=== PATIENT | male | born 1975 | race Caucasian/White ===

== ENCOUNTER → 2017-04-23 | Outpatient (CLI) | payer MEDICARE ==
--- NOTE | 2017-04-23 13:50 | Diagnostic Imaging Report ---
INDICATION: Back pain. AP and lateral views of the lumbar spine are obtained. FINDINGS: The lumbar vertebrae are normal in height and alignment. There is no fracture or subluxation. There is small osteophyte formation at L5. There is no significant disc space narrowing. IMPRESSION: Minor degenerative changes as above with no acute bony abnormality. Dictated by: Dictated on workstation # [id number]
== END ==
LOC: RAD 12:17
PROVIDERS: ATTEND Chiropractor
DX: M54.5 Low back pain (principal); M54.15 Radiculopathy, thoracolumbar region; M79.1 Myalgia
CPT/HCPCS: 72100

== ENCOUNTER 2017-08-17 17:10 | Emergency (ER) | payer MEDICARE ==
[~2017-08-17] VITALS: Ht 175.3 cm; Wt 81.6 kg
[2017-08-17] MEDS ORDERED: LIDOCAINE 1% INJ 20 ML (XYLOCAINE) VIAL INJ STA (18:04)
[2017-08-17] MEDS ORDERED: TETANUS,DIPTH,PERTUSS P/F (BOOSTRIX) 0.5 ML VIAL IM STA (18:04)
--- NOTE | 2017-08-17 18:13 | ED General ---
General Chief Complaint: Laceration Stated Complaint: R HAND LAC Nursing Triage Note: LACERATION TO R HAND BETWEEN 1&2 WEB SPACE Nursing Sepsis Screen: No Definite Risk Source of Information: Patient, Family (mother) Exam Limitations: No Limitations History of Present Illness Time Seen by Provider: 18:02 Initial Comments 42 yo male patient presents to the ED with c/o a laceration to the rt hand from lifting his grill out of the truck. Timing/Duration: 1/2 Hour Modifying Factors: worse with Other (worse with palpation) Allergies and Home Medications Allergies Coded Allergies: Penicillins (Verified Allergy, Unknown, 08/17/17) Constitutional: no symptoms reported Musculoskeletal: see HPI, other (pain in the web space between the rt 1st and 2nd digits) Skin: see HPI Psychiatric/Neurological: Denies Numbness, Denies Paresthesia, Denies Tingling , Denies Weakness All Other Systems Reviewed Negative Unless Noted: Yes (Negative excepted noted.) Past Zzphton-Hmgsln-Fnstzz Hx Patient Social History Alcohol Use: Occasionally Uses Recreational Drug Use: No Smoking Status: Current Everyday Smoker Recent Foreign Travel: No Contact w/Someone Who Travel: No Recent Infectious Disease Expo: No Immunizations Up To Date Tetanus Booster (TDap): Unknown Surgeries History of Surgeries: No Respiratory History of Respiratory Disorde: No Cardiovascular History of Cardiac Disorders: No Neurological History of Neurological Disord: No Genitourinary History of Genitourinary Disor: No Gastrointestinal History of Gastrointestinal Di: No Musculoskeletal History of Musculoskeletal Dis: No Endocrine History of Endocrine Disorders: No HEENT History of HEENT Disorders: No Cancer History of Cancer: No Psychosocial History of Psychiatric Problem: No Integumentary History of Skin or Integumenta: No Reviewed Nursing Assessment Reviewed/Agree w Nursing PMH: Yes Family Medical History Significant Family History: No Pertinent Family Hx Physical Exam Vital Signs Vital Sign - Last 12Hours 08/17/17 08/17/17 17:12 19:40 Temp 96.3 Pulse 71 Resp 18 B/P (MAP) 139/65 Pulse Ox 96 O2 Delivery Room Air Capillary Refill : Less Than 3 Seconds General Appearance: No Apparent Distress, WD/WN Cardiovascular: Normal Peripheral Pulses Extremity: Normal Capillary Refill, Normal Range of Motion, Other (1 cm laceration noted in the web space between the 1st and 2nd fingers. no active bleeding noted. soft tissue tenderness noted. ) Neurologic/Psychiatric: Alert, Oriented x3, No Motor/Sensory Deficits, Normal Mood/Affect Skin: Normal Color, Warm/Dry, Tattoos/Piercings, Other (1 cm laceration noted in the web space between the 1st and 2nd fingers. no active bleeding noted. soft tissue tenderness noted. ) Laceration Repair : Wound Location: Upper Extremities (rt hand) Wound Length (cm): 1 Wound's Depth, Shape: superficial, linear Wound Explored: clean Betadine Prep?: Yes (and scrubbed with chlorasept and sterile saline) Anesthesia: 1% Lidocaine Volume Anesthetic (ccs): 2 Wound Debrided: minimal Suture: Ethlion Suture Size: 4-0 Number of Sutures: 3 Layer Closure?: 1 Sterile Dressing Applied?: Yes Progress Blood loss minimal. Patient tolerated the procedure well. Wound covered with 4 x 4 gauze and gauze roll. Progress/Results/Core Measures Results/Orders My Orders Orders - ERICA MONGEtFelix(Acell),Tet Adult (Boostrix (08/17/17 18:04) Lidocaine 1% Injection (Xylocaine 1% Inj (08/17/17 18:04) Ketorolac Injection (Toradol Injection) (08/17/17 18:14) Vital Signs/I&O Blood Pressure Mean: 89 Departure Communication (Admissions) Progress Notes Patient seen, evaluated, and wound repair performed. Plan for discharge to home. Impression Impression: Primary Impression: Laceration of right hand Qualified Codes: S61.411A - Laceration without foreign body of right hand, initial encounter Disposition: 01 HOME, SELF-CARE Condition: Improved Departure-Patient Inst. Decision time for Depature: 18:17 Referrals: NO,LOCAL PHYSICIAN (PCP/Family) Primary Care Physician Patient Instructions: Laceration Repair With Stitches (DC) Add. Discharge Instructions: All discharge instructions reviewed with patient and/or family. Voiced understanding. medications as directed. elevate the rt hand on pillows. tylenol extra strength as directed by the sales account manager for pain. motrin 800 mg by mouth every 8 hours as needed for pain. ice pack as needed. tomorrow morning you may begin showering with antibacterial soap. pat dry. apply triple antibiotic ointment twice daily for 3 days and cover with a bandage. return to the emergency department for worsened pain, redness, drainage, fever, or any other concerns. ERICA MONGE Aug 17, 2017 18:13
[2017-08-17] MEDS ORDERED: KETOROLAC 60 MG/2 ML VIAL IM STA (18:14)
[2017-08-17 19:40] VITALS: BP 142/99
== END 2017-08-17 19:40 | disposition home or self-care (01) ==
LOC: EDUNIT# 17:10 → ER 17:11
DX: S61.411A Laceration without foreign body of right hand, initial encounter (principal); F17.200 Nicotine dependence, unspecified, uncomplicated; Z23 Encounter for immunization; W45.8XXA Other foreign body or object entering through skin, initial encounter
CPT/HCPCS: 12001; 90471; 90715; 96372; 99281; 99282

== ENCOUNTER 2017-08-27 08:53 | Emergency (ER) | payer MEDICARE ==
[~2017-08-27] VITALS: Ht 175.3 cm; Wt 81.6 kg
--- OUTSIDE RECORDS SUMMARY | 2017-08-27 08:59 | XMS REPORT | Continuity of Care Document ---
Author Author [facility] Address Unknown Phone Unavailable Allergies Active Description Code Type Severity Reaction Onset Reported/Identified Relationship to Patient Clinical Status Yes Wasp Venom Drug Allergy N/A N/A 06/23/2014 Medications Problems Date Dx Coded Attending Type Code Diagnosis Diagnosed By 06/03/2014 LOBO CASAREZ APRN 682.2 CELLULITIS AND ABSCESS OF TRUNK 06/03/2014 LOBO CASAREZ APRN V12.04 PERSONAL HISTORY OF METHICILLIN RESISTANT STAPHYLOCOCCUS AUREUS 06/03/2014 LENA ASHTON APRN 682.2 CELLULITIS AND ABSCESS OF TRUNK 06/03/2014 LENA ASHTON APRN S V12.04 PERSONAL HISTORY OF METHICILLIN RESISTANT STAPHYLOCOCCUS AUREUS 06/23/2014 LENA ASHTON APRN S 530.81 GERD 06/23/2014 LENA ASHTON APRN S 995.0 OTHER ANAPHYLACTIC REACTION Procedures Code [place] [address] CULTURE MRSA Results Encounters ACCT No. Visit Date/Time Discharge Status Pt. Type Provider Facility Loc./Unit Complaint [id number] 06/23/2014 14:19:00 06/23/2014 23: 59:59 CLS Outpatient LENA ASHTON APRN [id number] 06/03/2014 13:23:00 06/03/2014 23: 59:59 CLS Outpatient LOBO CASAREZ APRN R
[2017-08-27 09:00] VITALS: BP 134/73
== END 2017-08-27 09:00 | disposition home or self-care (01) ==
LOC: EDUNIT# 08:53 → ER 08:55
DX: S61.411D Laceration without foreign body of right hand, subsequent encounter (principal); X58.XXXD Exposure to other specified factors, subsequent encounter

== ENCOUNTER → 2018-03-21 | Outpatient (CLI) | payer MEDICARE ==
--- NOTE | 2018-03-21 09:04 | Diagnostic Imaging Report ---
PROCEDURE: US Abdomen, limited. TECHNIQUE: Multiple realtime grayscale images were obtained over the abdomen in various projections. INDICATION: Palpable mass at the xiphoid process. Sonographic interrogation of the area of the xiphoid process was performed. No sonographic abnormality is identified. No solid or cystic mass is seen. IMPRESSION: No sonographic abnormality seen. If symptoms persist, CT of the chest could be performed for further evaluation. Dictated by: Dictated on workstation # [id number]
== END ==
LOC: RAD 06:49
PROVIDERS: ATTEND Nurse Practitioner Community Health
DX: R19.06 Epigastric swelling, mass or lump (principal)
CPT/HCPCS: 76705

== ENCOUNTER → 2018-04-11 | Outpatient (CLI) | payer MEDICARE ==
[~2018-04-11] MED LIST: CATHETER FLUSH 10 ML SYR IV PRN; IOHEXOL 350 MG/ML 100 ML (OMNIPAQUE 350) VIAL IV ONE; NS 250 ML (IVPB) BAG IV ONE
--- NOTE | 2018-04-11 13:40 | Diagnostic Imaging Report ---
PROCEDURE: CT chest with contrast only. TECHNIQUE: Multiple contiguous axial images were obtained through the chest after administration of intravenous contrast. INDICATION: Sternal pain and epigastric pain as well as difficulty breathing. No prior studies are available for comparison. FINDINGS: No axillary, hilar or mediastinal lymphadenopathy is detected. No pericardial or pleural fluid is identified. No pulmonary infiltrates, nodules or masses are seen. Bony structures are unremarkable. No osteolytic or blastic lesions are seen. No fractures are identified. Imaging through the upper abdomen does show a complex solid-appearing mass in the upper pole of the left kidney approximately 3.8 cm in size. IMPRESSION: 1. No acute feature in the chest is identified. No acute bony abnormality is seen. No thoracic lymphadenopathy or parenchymal abnormality is seen. 2. 3.8 cm solid appearing mass involving the upper pole of the left kidney. Features are concerning for a renal cell carcinoma. Urology consult is recommended. Dictated by: Dictated on workstation # [id number]
== END ==
LOC: RAD 12:41
PROVIDERS: ATTEND Nurse Practitioner Community Health
DX: N28.89 Other specified disorders of kidney and ureter (principal); R06.00 Dyspnea, unspecified; R07.89 Other chest pain
CPT/HCPCS: 71260

== ENCOUNTER → 2018-05-16 | Outpatient (CLI) | payer MEDICARE ==
[~2018-05-16] MED LIST changes: +RECEIVED CONTRAST (Hold Metformin) IV SCH
--- NOTE | 2018-05-29 14:19 | RADIOLOGY REPORT ---
NAME: BARTOLO GRACE [facility] REC#: [id number] PT STATUS: REG CLI : 1975 PHYSICIAN: JUAN PABLO VALENZUELA MD ADMIT DATE: 05/14/18/RAD CORRECTED Signed Date of Exam:05/16/18 CT ABDOMEN/PELVIS W WO PROCEDURE: CT abdomen and pelvis with and without contrast. TECHNIQUE: Precontrast acquisitions were acquired through the abdomen and pelvis. Multiple contiguous axial images were obtained through the abdomen and pelvis after the administration of intravenous contrast. INDICATION: Suspicion for left renal mass. FINDINGS: There is a heterogeneously enhancing solid left renal mass at its upper pole partially exophytic bulging anteriorly and in axial plane it measures maximal dimensions 4.2 x 4.0 cm and measures about 3.6 cm cephalocaudal. The appearance is most suggestive of renal cell carcinoma. No additional left renal mass is found. This did not extend into its pelvis or hilum. The renal veins and cava are patent bilaterally. The adrenals are negative bilaterally. There is no perinephric or periaortic retroperitoneal lymphadenopathy. The contralateral right kidney is unobstructed and normal. There is no suspicious lytic or sclerotic bone lesion. There is no basilar pulmonary nodule. There is a tiny hiatal hernia. A minute low-density nodule left hepatic lobe near the dome anteriorly is 3 mm too small to be definitively characterize but felt more likely cystic. No definite solid or enhancing liver mass. There is no biliary abnormality. The spleen is negative. There is no small or large bowel obstruction. There is no ascites. The appendix normal. There is no diverticulitis. Prostate, seminal vesicles and the urinary bladder appeared within normal limits. Ilioinguinal lymph node chains appeared normal. No abdominal wall defect hernia or fluid collection. IMPRESSION: 1. A solid heterogeneously enhancing left renal mass, renal cell carcinoma not excluded. 2. There were, however no findings at this study felt suggestive of CT evidence for regional or distant metastasis. Dictated by: Dictated on workstation # [id number] Dict: 05/16/18 0935 Trans: 05/16/18 1705 [id number] Interpreted by: ESTEPHANIE ABRAHAM Electronically signed by: ESTEPHANIE ABRAHAM 05/16/18 1705 [facility]
== END ==
LOC: RAD 08:41
PROVIDERS: ATTEND Urology
DX: N28.89 Other specified disorders of kidney and ureter (principal)
CPT/HCPCS: 74178

== ENCOUNTER 2018-09-05 20:54 | Outpatient (CLI) | payer MEDICARE ==
[~2018-09-05 20:54] MED LIST changes: +ATEN25TA PO; +ATOR40TA70 PO; -CATHETER FLUSH 10 ML SYR IV PRN; +HYDR-3062 PO; +HYOS-19 SL; -IOHEXOL 350 MG/ML 100 ML (OMNIPAQUE 350) VIAL IV ONE; -NS 250 ML (IVPB) BAG IV ONE; +PANT40TA3 PO; -RECEIVED CONTRAST (Hold Metformin) IV SCH; +SENN-140 PO
== END 2018-09-06 06:47 | disposition home or self-care (01) ==
LOC: RAD 20:54 → SLEEP 09-06 06:47
PROVIDERS: ATTEND Nurse Practitioner Community Health
DX: G47.33 Obstructive sleep apnea (adult) (pediatric) (principal)
CPT/HCPCS: 95811

== ENCOUNTER 2019-01-22 19:27 | Emergency (ER) | payer MEDICARE, MEDICAID ==
[~2019-01-22] VITALS: Ht 175.3 cm; Wt 105.7 kg
[~2019-01-22 19:27] MED LIST changes: -SENN-140 PO; +SENN-141 PO
[2019-01-22] MEDS ORDERED: BENZONATATE 100 MG (TESSALON) CAPSULE PO SCH ×2 (20:00→20:45)
[2019-01-22] MEDS ORDERED: ACETAMINOPHEN 500 MG TAB (TYLENOL) PO ONE (20:00)
[2019-01-22] MEDS ORDERED: IBUPROFEN 800 MG (MOTRIN) TAB PO ONE (20:00)
[2019-01-22] MEDS ORDERED: PROMETHAZINE/ CODEINE SYRUP 5 ML UDC PO ONE ×2 (20:00→20:45)
--- NOTE | 2019-01-22 20:16 | ED Cough/URI ---
General Chief Complaint: Cough/Cold/Flu Symptoms Stated Complaint: VOMITING,COUGH,HEADACHE,DIZZY Nursing Triage Note: Pt. advises that he has been coughing for approximately 1 week and started vomitting this morning. He advises that he has had a fever and a headache. Sepsis Screen: No Definite Risk Source: patient, family History of Present Illness Date Seen by Provider: Jan 22, 2019 Time Seen by Provider: 19:48 Initial Comments PT ARRIVES VIA POV FROM HOME--WITH MOM, DAD AND FEMALE S.O. WITH HIM. MOM DOES MOST OF TALKING FOR PT, WELL FEMALE S.O. PT C/O NON-PRODUCTIVE COUGH AND CONGESTION FOR 1 WEEK VOMITING SECONDARY TO COUGH TODAY C/O HEADACHE--WORSE WITH COUGHING C/O BODY ACHES PT UNAWARE OF FEVER--TEMP IS 100.2 ON ARRIVAL NO CHEST PAIN OR SHORTNESS OF BREATH HAS NOT TAKEN ANYTHING FOR SYMPTOMS AT ANY TIME HAS NOT SOUGHT CARE UNTIL TODAY NO HISTORY OF RESPIRATORY PROBLEMS BUT SMOKES 2 PPD Allergies and Home Medications Allergies Coded Allergies: Penicillins (Verified Allergy, Unknown, 08/17/17) Uncoded Allergies: BEES (Allergy, Unknown, 01/22/19) Home Medications Atenolol 25 Mg Tablet, 25 MG PO DAILY, (Reported) Pantoprazole Sodium 40 Mg Tablet.dr, 40 MG PO DAILY, (Reported) Past Xszxhfi-Hqofwn-Ncanve Hx Patient Social History Alcohol Use: Denies Use Recreational Drug Use: No Smoking Status: Current Everyday Smoker Recent Foreign Travel: No Contact w/Someone Who Travel: No Recent Infectious Disease Expo: No Recent Hopitalizations: Yes Immunizations Up To Date Tetanus Booster (TDap): Unknown Seasonal Allergies Seasonal Allergies: No Past Medical History Surgeries: Yes (CANCER REMOVED FROM LEFT KIDNEY) Nephrectomy Respiratory: Yes Sleep Apnea Cardiac: Yes High Cholesterol, Hypertension Neurological: No Sexually Transmitted Disease: No Genitourinary: Yes (KIDNEY CANCER) Gastrointestinal: Yes Gastroesophageal Reflux Musculoskeletal: No Endocrine: No HEENT: No Cancer: Yes Kidney Did You Recieve Any Treatments: Yes What Type of Treatment Did You: Surgical Intervention Psychosocial: No Integumentary: No Blood Disorders: No Family Medical History No Pertinent Family Hx Physical Exam Vital Signs - First Documented Capillary Refill : Less Than 3 Seconds Height: 5'9.00" Weight: 233lbs. oz. 105.627645zo; 21.09 BMI Method:Stated Procedures/Interventions Suture Size: 4-0 Progress/Results/Core Measures Suspected Sepsis Recent Fever Within 48 Hours: Yes Infection Criteria Present: Suspected New Infection New/Unexplained Altered Menta: No Sepsis Screen: No Definite Risk SIRS Temperature:100.2 Pulse: 83 Respiratory Rate: 14 Blood Pressure 125 /83 Mean: 97 Results/Orders Micro Results Microbiology 01/22/19 Influenza Types A,B Antigen (ELOY) - Final, Complete My Orders Orders - DEVON LEIGH DO Influenza A And B Antigens (01/22/19 19:48) Benzonatate Capsule (Tessalon Perles) (01/22/19 20:00) Promethazine/ Codeine Syrup (Phenergan W (01/22/19 20:00) Acetaminophen Tablet (Tylenol Tablet) (01/22/19 20:00) Ibuprofen Tablet (Motrin Tablet) (01/22/19 20:00) Rx-Doxycycline Tablet (Rx-Vibramycin Tab (01/22/19 20:36) Benzonatate Capsule (Tessalon Perles) (01/22/19 20:45) Promethazine/ Codeine Syrup (Phenergan W (01/22/19 20:45) Medications Given in ED Current Medications Medications Dose Ordered Sig/Laquita Route Start Time Stop Time Status Last Admin Dose Admin Acetaminophen 1,000 mg ONCE ONCE PO 01/22/19 20:00 01/22/19 20:01 DC 01/22/19 20:09 1,000 MG Ibuprofen 800 mg ONCE ONCE PO 01/22/19 20:00 01/22/19 20:01 DC 01/22/19 20:08 800 MG Promethazine HCl/ Codeine 5 ml ONCE ONCE PO 01/22/19 20:00 01/22/19 20:01 DC 01/22/19 20:08 5 ML Vital Signs/I&O 01/22/19 01/22/19 01/22/19 01/22/19 19:52 19:52 20:08 20:09 Temp 100.2 100.2 100.2 Pulse 83 Resp 14 B/P (MAP) 125/83 (97) Pulse Ox 95 O2 Delivery Room Air Room Air Capillary Refill : Less Than 3 Seconds Blood Pressure Mean: 97 Departure Impression Primary Impression: Influenza-like symptoms Additional Impressions: Bronchitis Upper respiratory infection Disposition: 01 HOME, SELF-CARE Condition: Stable Departure-Patient Inst. Referrals: [facility]/YEF[facility] (PCP) Primary Care Physician MONICA ROMANO (Family) Primary Care Physician Patient Instructions: Flu, Adult (DC), Acute Bronchitis, Adult (DC) Add. Discharge Instructions: LOTS OF CLEAR LIQUIDS--WATER, BROTH, JELLO, GATORADE TYLENOL 1 GRAM/ MOTRIN 800 MG 4 TIMES A DAY FOR PAIN OR FEVER FOLLOW UP WITH YOUR DR IN 3-4 DAYS IF NO BETTER All discharge instructions reviewed with patient and/or family. Voiced understanding. Scripts D-Methorphan Hb/Prometh HCl (Promethazine-Dm Syrup) 118 Ml Syrup 1-2 TSP PO Q4H for Cough, #120 ML Prov: DEVON LEIGH DO 01/22/19 Benzonatate (TESSALON PERLES) 100 Mg Capsule 1-2 TAB PO TID for Cough, #30 CAP Prov: DEVON LEIGH DO 01/22/19 Doxycycline Monohydrate (Doxycycline Monohydrate) 100 Mg Capsule 100 MG PO BID, #20 CAP Prov: DEVON LEIGH DO 01/22/19 DEVON LEIGH DO Jan 22, 2019 20:16
[2019-01-22] MEDS ORDERED: RX-DOXYCYCLINE 100 MG (VIBRAMYCIN) TAB PPK#2 PO STA (20:36)
[2019-01-22] MEDS ORDERED: DOXY100C42 PO (20:45)
[2019-01-22] MEDS ORDERED: D-ME118S7 PO (20:45)
[2019-01-22] MEDS ORDERED: BENZ100C18 PO (20:45)
[2019-01-22 21:28] VITALS: BP 125/83
== END 2019-01-22 21:28 | disposition home or self-care (01) ==
LOC: EDUNIT# 19:27 → ER 19:28
DX: J40 Bronchitis, not specified as acute or chronic (principal); J06.9 Acute upper respiratory infection, unspecified; R51 Headache; G47.30 Sleep apnea, unspecified; I10 Essential (primary) hypertension; E78.00 Pure hypercholesterolemia, unspecified; K21.9 Gastro-esophageal reflux disease without esophagitis; F17.210 Nicotine dependence, cigarettes, uncomplicated; Z88.0 Allergy status to penicillin; Z90.5 Acquired absence of kidney; Z85.528 Personal history of other malignant neoplasm of kidney
CPT/HCPCS: 87804

== ENCOUNTER 2019-05-26 16:15 | Emergency (ER) | payer MEDICARE, MEDICAID ==
[~2019-05-26] VITALS: Ht 177.8 cm; Wt 99.8 kg
[~2019-05-26 16:15] MED LIST changes: +BENZ100C18 PO; +D-ME118S7 PO; +DOXY100C42 PO
--- OUTSIDE RECORDS SUMMARY | 2019-05-26 16:20 | XMS REPORT ---
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 Active 574075022 ALLERGIES No Information ENCOUNTERS Encounter Location Date Diagnosis [facility] [address] [address] Aug, Observed sleep apnea G47.30 [facility] [address] [address] Aug, [facility] [address] [address] Aug, [facility] [address] [place] [id number] [place] [address] Jul, Low back pain M54.5 ; Other chronic pain G89.29 and Observed sleep apnea G47.30 [facility] [id number] [place] [address] Jul, Observed sleep apnea G47.30 [facility] [address] [address] Jun, [place] [address] [address] May, Strain of lumbar region, initial encounter S39.012A and Essential hypertension I10 [place] [id number] [place] [address] 13 May, 2018 [place] [address] [address] 03 May, 2018 [place] [id number] [place] [address] 13 Apr, 2018 Medicare annual wellness visit, initial Z00.00 [place] [address] [address] 13 Apr, 2018 [place] [id number] [place] [address] 12 Apr, 2018 Medicare annual wellness visit, initial Z00.00 ; Encounter for immunization Z23 ; GERD without esophagitis K21.9 ; Renal mass, right N28.89 and Advanced directives, counseling/discussion Z71.[address] [address] 07 Apr, 2018 [place] [id number] [place] [address] March, Sternum pain R07.89 and Epigastric mass R19.06 [place] [id number] [place] [address] 30 Feb, 2018 Acute suppurative otitis media of right ear without spontaneous rupture of tympanic membrane, recurrence not specified H66.001 ; 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 and Epigastric mass R19.06 [facility] [id number] [place] [address] Feb, Sore throat J02.9 and Acute intractable headache, unspecified headache type R51 [facility] [address] [place] [id number] [place] [address] Jan, Sternum pain R07.89 and GERD without esophagitis K21.9 [place] [address] [address] Feb, Skin tags, multiple acquired L91.8 [facility] [id number] [address] Feb, [facility] [address] [place] [address] Feb, [facility] [address] [place] [address] Jun, [facility] [address] [facility] [id number] [address] Jun, [facility] [address] [facility] [id number] [address] May, [facility] [id number] [address] May, [facility] [address] [place] [address] May, [facility] [id number] [place] [address] May, [facility] [id number] [place] [address] May, [facility] [id number] [place] [address] May, [facility] [id number] [address] May, [facility] [id number] [place] [address] May, [facility] [id number] [address] May, IMMUNIZATIONS No Known Immunizations SOCIAL HISTORY Never Assessed REASON FOR VISIT CPAP order correction PLAN OF CARE VITAL SIGNS MEDICATIONS Unknown Medications RESULTS No Results PROCEDURES No Known procedures INSTRUCTIONS MEDICATIONS ADMINISTERED No Known Medications MEDICAL (GENERAL) HISTORY Type Description Date Medical History Cancer left kidney Surgical History left hand surgery Surgical History total teeth extractions Surgical History Partial removal of left kidney due to cancer 07/01/2018 Hospitalization History [facility] x 1 night Cancer 07/01/18
--- OUTSIDE RECORDS SUMMARY | 2019-05-26 16:20 | XMS REPORT ---
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 247137333 Problem Essential hypertension I10 Active 56214823 Problem Observed sleep apnea G47.30 Active 03123472 ALLERGIES No Information ENCOUNTERS Encounter Location Date Diagnosis [place] [address] [address] March, [place] [address] [address] Feb, Hypertension, benign I10 ; Skin tag L91.8 ; Tinea corporis B35.4 and Right otitis media with effusion H65.91 [place] [address] [place] [id number] [place] [address] Oct, [place] [address] [address] Oct, [place] [address] [address] Oct, Lumbar neuritis M54.16 [place] [address] [address] Aug, Observed sleep apnea G47.30 [place] [address] [address] Aug, [place] [address] [address] Aug, [place] [address] [place] [id number] [place] [address] Jul, Low back pain M54.5 ; Other chronic pain G89.29 and Observed sleep apnea G47.30 [place] [address] [place] [id number] [place] [address] 07 Jul, 2018 Observed sleep apnea G47.30 [place] [address] [place] [id number] [place] [address] Jun, [place] [address] [place] [id number] [place] [address] May, Strain of lumbar region, initial encounter S39.012A and Essential hypertension I10 [place] [address] [place] [id number] [place] [address] May, [place] [address] [address] May, [place] [address] [place] [id number] [place] [address] Apr, Medicare annual wellness visit, initial Z00.00 [place] [address] [place] [id number] [place] [address] Apr, [place] [address] [place] [id number] [place] [address] 12 Apr, 2018 Medicare annual wellness visit, initial Z00.00 ; Encounter for immunization Z23 ; GERD without esophagitis K21.9 ; Renal mass, right N28.89 and Advanced directives, counseling/discussion Z71.89 [place] [address] [place] [id number] [place] [address] Apr, [place] [address] [place] [id number] [place] [address] March, Sternum pain R07.89 and Epigastric mass R19.06 [place] [id number] [place] [address] Feb, Acute suppurative otitis media of right ear without spontaneous rupture of tympanic membrane, recurrence not specified H66.001 ; 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 and Epigastric mass R19.06 [facility] [address] [place] [id number] [place] [address] Feb, Sore throat J02.9 and Acute intractable headache, unspecified headache type R51 [facility] [address] [place] [id number] [place] [address] Jan, Sternum pain R07.89 and GERD without esophagitis K21.9 [facility] [address] [address] Feb, Skin tags, multiple acquired L91.8 [facility] [address] [address] Feb, [facility] [address] [address] Feb, [facility] [address] [place] [id number] [place] [address] Jun, [facility] [address] [place] [id number] [place] [address] Jun, [facility] [address] [place] [id number] [place] [address] May, [facility] [address] [place] [id number] [place] [address] May, [facility] [address] [place] [id number] [place] [address] May, [facility] [address] [place] [id number] [place] [address] May, [facility] [address] [place] [id number] [place] [address] May, [facility] [address] [place] [address] May, [facility] [address] [facility] [id number] [address] May, [facility] [address] [facility] [id number] [address] May, [facility] [address] [facility] [id number] [place] [address] May, IMMUNIZATIONS No Known Immunizations SOCIAL HISTORY Never Assessed REASON FOR VISIT [place] [place] VITAL SIGNS MEDICATIONS Unknown Medications RESULTS No Results PROCEDURES No Known procedures INSTRUCTIONS MEDICATIONS ADMINISTERED No Known Medications MEDICAL (GENERAL) HISTORY Type Description Date Medical History Cancer left kidney Surgical History left hand surgery Surgical History total teeth extractions Surgical History Partial removal of left kidney due to cancer 07/01/2018 Surgical History back surgery 11/07/18 Hospitalization History [facility] x 1 night Cancer 07/01/18 Hospitalization History back surgery 11/07/18
--- OUTSIDE RECORDS SUMMARY | 2019-05-26 16:20 | XMS REPORT | Encounter Summary ---
Author Author [facility] Organization [facility] Address Unknown Phone Unavailable Care Team Providers Care Special Education Coordinator Name Role Phone Waldo Mccormack MD PCP Encounter Details Care Team Description Date Type Department Leonor Hubbard MD [address] [facility] [address] [place] [address] [phone] 01/21/2019 [facility] [address] [id number] Social History Date Tobacco Use Types Packs/Day Years Used Current Every Day Smoker Cigarettes 1 24 Smokeless Tobacco: Current User Drinks/Week oz/Week Comments Alcohol Use Yes Sex Assigned at Date Recorded Not on file Industry Job Start Date Occupation Not on file Not on file Not on file Travel End Travel History Travel Start No recent travel history available. documented as of this encounter Functional Status Date of Assessment Functional Status Response 07/02/2018 Does the patient have a hearing impairment: No documented as of this encounter Medications at Time of Discharge Start Date End Date Medication Sig Dispensed Refills atenolol (TENORMIN) 25 mg Take 25 mg by 0 tablet mouth daily. atorvastatin (LIPITOR) 40 Take 40 mg by 0 mg tablet mouth at bedtime daily. cyclobenzaprine Take 10 mg by 0 (FLEXERIL) 10 mg tablet mouth three times daily as needed for Muscle Cramps. EPINEPHrine (EPIPEN Inject 0.3 mg 0 2-ALTHEA) 1 mg/mL injection into the pen (2-Pack) muscle once as needed. Inject 0.3 mg (1 Pen) into thigh if needed for anaphylactic reaction. May repeat in 5-15 minutes if needed. 07/02/2018 hyoscyamine (ANASPAZ; Place one 30 tablet 0 NULEV; SYMAX FASTABS; tablet under HYOMAX-FT; ED-SPAZ; tongue every OSCIMIN) 0.125 mg rapid 4 hours as dissolve tablet needed. 07/02/2018 oxyCODONE (ROXICODONE, Take one 20 tablet 0 OXY-IR) 5 mg tablet tablet or two tablets by mouth every 6 hours as needed for severe pain pantoprazole DR Take 40 mg by 0 (PROTONIX) 40 mg tablet mouth daily. 07/02/2018 polyethylene glycol 3350 Take one 30 each 0 (MIRALAX) 17 g packet packet by mouth twice daily. senna (SENOKOT) 8.6 mg 0 tablet 07/02/2018 senna/docusate Take one 14 tablet 0 (SENOKOT-S) 8.6/50 mg tablet by tablet mouth twice daily. documented as of this encounter Plan of Treatment Not on filedocumented as of this encounter Procedures Comments Procedure Name Priority Date/Time Associated Diagnosis RENAL BLADDER LTD Routine 01/21/2019 Renal mass 12:52 PM MARINE SERVICE MANAGER documented in this encounter Results * US RENAL BLADDER LTD (01/21/2019 12:52 PM MARINE SERVICE MANAGER) Specimen Impressions Performed At Postoperative changes in the left kidney [facility] No evidence of recurrent or residual renal mass, hydronephrosis or shadowing calculi Finalized by Johnnie Bee M.D. on 01/21/2019 3:00 PM. Dictated by Johnnie Bee M.D. on 01/21/2019 2:58 PM. Narrative Performed At Renal sonogram [facility] Clinical indications: Renal mass. Left renal cancer following partial left nephrectomy. TECHNIQUE: Ultrasound images were performed over the kidneys and bladder. FINDINGS: Right kidney is normal in size with no evidence of hydronephrosis, shadowing calculi or definite masses. A minimally hypoechoic area in the upper to mid portion of the right kidney is is compatible with a column of Chon, a normal variant. There is mild cortical thinning in the area of previous mass in the lateral superior aspect of the left kidney. Left kidney appears otherwise normal with no evidence of hydronephrosis or shadowing calculi. The left kidney measures 10.4 x 5 point to centimeters. The bladder appears normal. Procedure Note Interface, Radiant Results - 01/21/2019 3:04 PM MARINE SERVICE MANAGER Renal sonogram Clinical indications: Renal mass. Left renal cancer following partial left nephrectomy. TECHNIQUE: Ultrasound images were performed over the kidneys and bladder. FINDINGS: Right kidney is normal in size with no evidence of hydronephrosis, shadowing calculi or definite masses. A minimally hypoechoic area in the upper to mid portion of the right kidney is is compatible with a column of Chon, a normal variant. There is mild cortical thinning in the area of previous mass in the lateral superior aspect of the left kidney. Left kidney appears otherwise normal with no evidence of hydronephrosis or shadowing calculi. The left kidney measures 10.4 x 5 point to centimeters. The bladder appears normal. IMPRESSION Postoperative changes in the left kidney No evidence of recurrent or residual renal mass, hydronephrosis or shadowing calculi Finalized by Johnnie Bee M.D. on 01/21/2019 3:00 PM. Dictated by Johnnie Bee M.D. on 01/21/2019 2:58 PM. Performing Organization Address City/State/Zipcode Phone Number [facility] documented in this encounter Visit Diagnoses Diagnosis Renal mass Unspecified disorder of kidney and ureter documented in this encounter
--- OUTSIDE RECORDS SUMMARY | 2019-05-26 16:20 | XMS REPORT | Clinical Summary ---
Author Author [facility] Organization [facility] Address Unknown Phone Unavailable Care Team Providers Care Radius Corner Machine Operator Name Role Phone Waldo Mccormack MD PCP Source Comments Some departments are not documenting in the electronic medical record. If you d o not see the information that you expected, contact Release of Information in [facility] Information Management department at [phone] for further assistan ce in locating additional records.[facility] Allergies Comments Active Allergy Reactions Severity Noted Date Penicillins SHORTNESS OF Medium BREATH Wasp Venom UNKNOWN Low 02/06/2018 Medications End Date Status Medication Sig Dispensed Refills Start Date Active atorvastatin (LIPITOR) 40 Take 40 mg by 0 mg tablet mouth at bedtime daily. Active atenolol (TENORMIN) 25 mg Take 25 mg by 0 tablet mouth daily. Active pantoprazole DR Take 40 mg by 0 (PROTONIX) 40 mg tablet mouth daily. Active cyclobenzaprine Take 10 mg by 0 (FLEXERIL) 10 mg tablet mouth three times daily as needed for Muscle Cramps. Active hyoscyamine (ANASPAZ; Place one 30 tablet 0 NULEV; SYMAX FASTABS; tablet under 8 HYOMAX-FT; ED-SPAZ; tongue every OSCIMIN) 0.125 mg rapid 4 hours as dissolve tablet needed. Active oxyCODONE (ROXICODONE, Take one 20 tablet 0 OXY-IR) 5 mg tablet tablet or two 8 tablets by mouth every 6 hours as needed for severe pain Active EPINEPHrine (EPIPEN Inject 0.3 mg 0 2-ALTHEA) 1 mg/mL injection into the pen (2-Pack) muscle once as needed. Inject 0.3 mg (1 Pen) into thigh if needed for anaphylactic reaction. May repeat in 5-15 minutes if needed. Active polyethylene glycol 3350 Take one 30 each 0 (MIRALAX) 17 g packet packet by 8 mouth twice daily. Active senna/docusate Take one 14 tablet 0 (SENOKOT-S) 8.6/50 mg tablet by 8 tablet mouth twice daily. Active senna (SENOKOT) 8.6 mg 0 tablet Active Problems Problem Noted Date Renal cell cancer, left 06/11/2018 Overview: S/p left robotic partial nephrectomy 07/01/18 Kidney, "left renal mass", partial nephrectomy: Clear cell renal cell carcinoma, WHO grade II. 01/2019: [facility] wnl L ast Assessment & Plan: Doing well CARLYLE RTC 18 months with CXR and CT AP and labs Family History Medical History Relation Name Comments Heart Disease Mother Hypertension Mother Relation Name Status Comments Mother Social History Date Tobacco Use Types Packs/Day Years Used Current Every Day Smoker Cigarettes 1 24 Smokeless Tobacco: Current User Tobacco Cessation: Ready to Quit: Yes Drinks/Week oz/Week Comments Alcohol Use Yes Sex Assigned at Date Recorded Not on file Industry Job Start Date Occupation Not on file Not on file Not on file Travel End Travel History Travel Start No recent travel history available. Last Filed Vital Signs Reading Time Taken Comments Vital Sign 125/70 01/21/2019 2:20 PM ENGINEHOUSE BRAKEMAN Blood Pressure 65 01/21/2019 2:20 PM ENGINEHOUSE BRAKEMAN Pulse 37.2 C (99 F) 07/02/2018 11:24 AM CDT Temperature - - Respiratory Rate 92% 07/02/2018 11:24 AM CDT Oxygen Saturation - - Inhaled Oxygen Concentration 105.9 kg (233 lb 6.4 oz) 01/21/2019 2:20 PM ENGINEHOUSE BRAKEMAN Weight 177.8 cm (5' 10") 01/21/2019 2:20 PM ENGINEHOUSE BRAKEMAN Height 33.49 01/21/2019 2:20 PM ENGINEHOUSE BRAKEMAN Body Mass Index Plan of Treatment Health Maintenance Due Date Last Done Comments PHYSICAL (COMPREHENSIVE) 1984 EXAM HIV SCREENING 1992 DTAP/TDAP VACCINES ( - 1995 Tdap) INFLUENZA VACCINE 08/19/2019 Results Not on filefrom Last 3 Months Insurance Type Payer Benefit Subscriber ID Effective Phone Address Plan / Dates Group Medicare MEDICARE MEDICARE xxxxxxxxxxx 2009- PART A AND Present B Medicaid [facility] MEDICAID [facility] xxxxxxxxxxx 2018-P [place]AN [place] Advance Directives Patient Water Resources Project Manager Explanation Type Date Recorded Advance 07/01/2018 5:14 AM Directive/DPOA Date Inactivated Comments Code Status Date Activated 07/02/2018 6:23 PM Full Code 07/01/2018 1:22 PM Provider has discussed Code Status Yes w/Patient or Family?
--- OUTSIDE RECORDS SUMMARY | 2019-05-26 16:20 | XMS REPORT | Encounter Summary ---
Author Author [facility] Organization [facility] Address Unknown Phone Unavailable Care Team Providers Care Credit Product Analyst Name Role Phone Waldo Mccormack MD PCP Reason for Referral * Consult, Test & Treat (Routine) Referred By Contact Referred To Contact Status Reason Specialty Diagnoses / Procedures Leonor Hubbard MD [address] [facility] [address] [place] [address] Cc - Ww Cl Exm/Proc [address] Closed Specialty Services Genetics / Diagnoses Required Oncology Renal cell cancer, left (HCC) * Radiology Services (Routine) Referred By Contact Referred To Contact Status Reason Specialty Diagnoses / Procedures Leonor Hubbard MD [address] [facility] [address] [place] [address] New Request Radiology Diagnoses Renal cell cancer, left (HCC) P rocedures CT ABD/PELV W CONTRAST Reason for Visit * Reason Comments Kidney Cancer Encounter Details Care Team Description Date Type Department Leonor Hubbard MD [address] [facility] [address] [place] [address] [phone] Renal cell cancer, left (HCC) (Primary Dx) 01/21/2019 Office Visit [facility] [address] [place] [id number] Social History Date Tobacco Use Types Packs/Day [...] history available. documented as of this encounter Last Filed Vital Signs Reading Time Taken Comments Vital Sign 125/70 01/21/2019 2:20 PM SPOT WELDER LINE Blood Pressure 65 01/21/2019 2:20 PM SPOT WELDER LINE Pulse - - Temperature - - Respiratory Rate - - Oxygen Saturation - - Inhaled Oxygen Concentration 105.9 kg (233 lb 6.4 oz) 01/21/2019 2:20 PM SPOT WELDER LINE Weight 177.8 cm (5' 10") 01/21/2019 2:20 PM SPOT WELDER LINE Height 33.49 01/21/2019 2:20 PM SPOT WELDER LINE Body Mass Index documented in this encounter Functional Status Date of Assessment Functional Status Response 07/02/2018 Does the patient have a hearing impairment: No documented as of this encounter Progress Notes * Leonor Hubbadr MD - 01/21/2019 3:15 PM SPOT WELDER LINE Date of Service: 01/21/2019 Subjective: Jaswinder Henderson Jr. is a 43 y.o. male. History of Present Illness Here for follow up of kidney cancer Doing well Denies complaints Denies pain, hematuria, dysuria Denies fatigue, wt loss Review of Systems Constitutional: Negative for activity change, appetite change, chills and fever. Respiratory: Negative for cough and shortness of breath. Cardiovascular: Negative for chest pain and leg swelling. Gastrointestinal: Negative for abdominal pain, constipation and diarrhea. Genitourinary: Negative for dysuria, enuresis, flank pain, frequency, hematuria, penile pain and testicular pain. Musculoskeletal: Negative for joint swelling. Skin: Negative for rash and wound. Neurological: Negative for syncope, weakness, light-headedness and headaches. Hematological: Negative for adenopathy. Psychiatric/Behavioral: Negative for confusion. Objective: atenolol (TENORMIN) 25 mg tablet Take 25 mg by mouth daily. atorvastatin (LIPITOR) 40 mg tablet Take 40 mg by mouth at bedtime daily. cyclobenzaprine (FLEXERIL) 10 mg tablet Take 10 mg by mouth three times bonita y as needed for Muscle Cramps. EPINEPHrine (EPIPEN 2-ALTHEA) 1 mg/mL injection pen (2-Pack) Inject 0.3 mg into the muscle once as needed. Inject 0.3 mg (1 Pen) into thigh if needed for anaph ylactic reaction. May repeat in 5-15 minutes if needed. hyoscyamine (ANASPAZ; NULEV; SYMAX FASTABS; HYOMAX-FT; ED-SPAZ; OSCIMIN) 0.1 25 mg rapid dissolve tablet Place one tablet under tongue every 4 hours as neede d. oxyCODONE (ROXICODONE, OXY-IR) 5 mg tablet Take one tablet or two tablets by mouth every 6 hours as needed for severe pain pantoprazole DR (PROTONIX) 40 mg tablet Take 40 mg by mouth daily. polyethylene glycol 3350 (MIRALAX) 17 g packet Take one packet by mouth twic e daily. senna (SENOKOT) 8.6 mg tablet senna/docusate (SENOKOT-S) 8.6/50 mg tablet Take one tablet by mouth twice d aily. Vitals: 01/21/19 1420 BP: 125/70 Pulse: 65 Weight: 105.9 kg (233 lb 6.4 oz) Height: 177.8 cm (70") Body mass index is 33.49 kg/m. Physical Exam Constitutional: He is oriented to person, place, and time. No distress. Eyes: Pupils are equal, round, and reactive to light. Neck: Neck supple. Cardiovascular: Normal rate and regular rhythm. Pulmonary/Chest: No respiratory distress. Abdominal: Soft. He exhibits no distension and no mass. There is no tenderness. Musculoskeletal: He exhibits no edema. Neurological: He is alert and oriented to person, place, and time. Skin: Skin is warm. No erythema. Assessment and Plan: Problem Renal Cell Cancer, Left (Hcc) S/p left robotic partial nephrectomy 07/01/18 Kidney, "left renal mass", partial nephrectomy: Clear cell renal cell carcinoma, WHO grade II. 01/2019: [facility] wnl Renal cell cancer, left (HCC) Doing well CARLYLE RTC 18 [address] with CXR and CT AP and labs Encouraged appointment with Genetic Counseling and replaced referral. Leonor Hubbard MD documented in this encounter Plan of Treatment Order Schedule Name Type Priority Associated Diagnoses Expected: 01/21/2020 (Approximate), Expires: 02/20/2020 CHEST 2 VIEWS Imaging Routine Renal cell cancer, left (HCC) Expected: 07/24/2019 (Approximate), Expires: 07/24/2022 CT ABD/PELV W CONTRAST Imaging Routine Renal cell cancer, left (HCC) Expected: 07/23/2020 (Approximate), Expires: 08/03/2022 CBC Lab Routine Renal cell cancer, left (HCC) Expected: 07/23/2020 (Approximate), Expires: 08/03/2022 COMPREHENSIVE METABOLIC Lab Routine Renal cell cancer, left PANEL (HCC) Expected: 02/04/2019 (Approximate), Expires: 01/22/2020 MISCELLANEOUS LAB TEST Lab Routine Renal cell cancer, left (HCC) Expected: 02/04/2019 (Approximate), Expires: 01/22/2020 GENETIC TEST Lab Routine Renal cell cancer, left (HCC) Order Schedule Name Type Priority Associated Diagnoses Ordered: 01/21/2019 AMB REFERRAL TO GENETIC Outpatient Routine Renal cell cancer, left COUNSELING Referral (HCC) documented as of this encounter Visit Diagnoses Diagnosis Renal cell cancer, left (HCC) - Primary * Assessment & Plan Note - Leonor Hubbard MD - 01/21/2019 2:56 PM SPOT WELDER LINE Associated Problem(s): Renal cell cancer, left (HCC) Doing well CARLYLE RTC [address] CXR and CT AP and labs W[place]DER [place] documented in this encounter
--- OUTSIDE RECORDS SUMMARY | 2019-05-26 16:21 | XMS REPORT ---
Author Author EVELIA SANDY Organization [facility] Address [address] [place] [address] Care Team Providers Care Freight Separator Name Role Phone EVELIA SANDY Unavailable PROBLEMS Type Condition ICD9-CM Code SXW70-KE Code Onset Dates Condition Status SNOMED Code Problem Personal history of methicillin resistant Staphylococcus aureus V12.04 Active 188155970 Problem Cellulitis and abscess of trunk 682.2 Active 099735823 Problem Other anaphylactic shock not elsewhere classified 995.0 Active 79661068 Problem Observed sleep apnea G47.30 Active 87083927 Problem Essential hypertension I10 Active 30131624 Problem GERD without esophagitis K21.9 Active 498472651 Problem Esophageal reflux 530.81 Active 570393357 Problem Renal mass, right N28.89 Active 117049070 Problem 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 [address] [place] [address] Jun, [facility] [address] [place] [address] May, Strain of lumbar region, initial encounter S39.012A and Essential hypertension I10 [facility] [address] [place] [id number] [address] May, [facility] [address] [place] [id number] [place] [address] May, [place] [address] [place] [id number] [place] [address] 13 Apr, 2018 Medicare annual wellness visit, initial Z00.00 [place] [address] [address] 13 Apr, 2018 [place] [address] [address] 12 Apr, 2018 Medicare annual wellness visit, initial Z00.00 ; Encounter for immunization Z23 ; GERD without esophagitis K21.9 ; Renal mass, right N28.89 and Advanced directives, counseling/discussion Z71.89 [place] [address] [address] 07 Apr, 2018 [place] [address] [address] March, Sternum pain R07.89 and Epigastric mass R19.06 [place] [address] [address] 30 Feb, 2018 Acute suppurative otitis media of right ear without spontaneous rupture of tympanic membrane, recurrence not specified H66.001 ; 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 [address] [address] Jun, [facility] [address] [address] Jun, [facility] [address] [address] May, [facility] [address] [address] May, [facility] [address] [address] May, [facility] [address] [address] May, [facility] [address] [address] May, [facility] [address] [address] May, [facility] [address] [address] May, [facility] [address] [address] May, [facility] [address] [place] [id number] [address] May, IMMUNIZATIONS No Known Immunizations SOCIAL HISTORY Never Assessed REASON FOR VISIT Pain (acute)(back), PT reports he fell off the back porch this weekend. -Brittany benavidez MA PLAN OF CARE Activity Details Follow Up prn Reason: VITAL SIGNS Height 70 in 2018-05-31 Weight 217.4 lbs 2018-05-31 Temperature 97.7 degrees Fahrenheit 2018-05-31 Heart Rate 81 bpm 2018-05-31 Respiratory Rate 20 2018-05-31 BMI 31.19 kg/m2 2018-05-31 Blood pressure systolic 155 mmHg 2018-05-31 Blood pressure diastolic 70 mmHg 2018-05-31 MEDICATIONS Medication Instructions Dosage Frequency Start Date End Date Duration Status Protonix 40 mg Orally Once a day 1 tablet 24h Jan, 30 day(s) Active EpiPen 2-Compa 0.3 MG/0.3ML Injection Once a day. may repeat daily as needed. as directed Feb, Active Cyclobenzaprine HCl 10 mg Orally Three times a day 1 tablet as needed 8h May, May, 10 days Active Atenolol 25 MG Orally Once a day 1 tablet 24h May, 30 day(s) Active Tramadol HCl 50 mg Orally every 6 hrs 1 tablet as needed 6h May, Active Omeprazole 20 MG Orally Once a day 1 capsule 24h Not-Taking Lipitor 40 mg Orally Once a day 1 tablet 24h May, 30 day(s) Active RESULTS No Results PROCEDURES Procedure Date Ordered Result Body Site [facility] VISIT ESTABLISHED PATIENT May 31, 2018 INSTRUCTIONS MEDICATIONS ADMINISTERED No Known Medications MEDICAL (GENERAL) HISTORY Type Description Date Medical History Cancer left kidney Surgical History left hand surgery Surgical History total teeth extractions Surgical History Partial removal of left kidney due to cancer 07/01/2018 Hospitalization History [facility] x 1 night Cancer 07/01/18
--- OUTSIDE RECORDS SUMMARY | 2019-05-26 16:21 | XMS REPORT ---
Author Author MONICA ROMANO Organization [facility] Address [address] [place] [address] Care Team Providers Care Particle Board Supervisor Name Role Phone MONICA ROMANO Unavailable PROBLEMS Type Condition ICD9-CM Code KBN89-YJ Code Onset Dates Condition Status SNOMED Code Problem Other anaphylactic shock not elsewhere classified 995.0 Active 58545906 Problem Personal history of methicillin resistant Staphylococcus aureus V12.04 Active 676519590 Problem Essential hypertension I10 Active 89830975 Problem Renal mass, right N28.89 Active 648000765 Problem Esophageal reflux 530.81 Active 122087735 Problem Cellulitis and abscess of trunk 682.2 Active 052197653 Problem 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 Active 177377023 Problem GERD without esophagitis K21.9 Active 499834054 ALLERGIES No Information ENCOUNTERS Encounter Location Date Diagnosis [place] [address] [address] Jul, [place] [address] [place] [address] Jun, [place] [address] [address] May, Strain of lumbar region, initial encounter S39.012A and Essential hypertension I10 [facility] [address] [facility] [id number] [address] May, [facility] [address] [place] [address] May, [facility] [address] [place] [address] Apr, Medicare annual wellness visit, initial Z00.00 [facility] [address] [place] [address] Apr, [place] [address] [address] Apr, Medicare annual wellness visit, initial Z00.00 ; Encounter for immunization Z23 ; GERD without esophagitis K21.9 ; Renal mass, right N28.89 and Advanced directives, counseling/discussion Z71.89 [place] [address] [address] Apr, [place] [address] [address] March, Sternum pain R07.89 and Epigastric mass R19.06 [place] [address] [address] 30 Feb, 2018 Acute suppurative otitis media of right ear without spontaneous rupture of tympanic membrane, recurrence not specified H66.001 ; 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 and Epigastric mass R19.06 [facility] [address] [address] Feb, Sore throat J02.9 and Acute intractable headache, unspecified headache type R51 [facility] [address] [address] Jan, Sternum pain R07.89 and GERD without esophagitis K21.9 [place] [address] [address] Feb, Skin tags, multiple acquired L91.8 [place] [address] [address] Feb, [place] [address] [address] Feb, [place] [address] [address] Jun, [place] [address] [address] Jun, [facility] [address] [place] [id number] [address] May, [facility] [address], [place] [address] May, [facility] [address], [place] [address] May, [facility] [address], [place] [address] May, [facility] [address], [place] [address] May, [facility] [address], [place] [address] May, [facility] [address], [place] [address] May, [facility] [address], [place] [address] May, [facility] [address] [place] [id number], [place] [address] May, IMMUNIZATIONS No Known Immunizations SOCIAL HISTORY Never Assessed REASON FOR VISIT Requests return call PLAN OF CARE VITAL SIGNS MEDICATIONS Unknown Medications RESULTS No Results PROCEDURES No Known procedures INSTRUCTIONS MEDICATIONS ADMINISTERED No Known Medications MEDICAL (GENERAL) HISTORY Type Description Date Surgical History left hand surgery Surgical History total teeth extractions
--- OUTSIDE RECORDS SUMMARY | 2019-05-26 16:21 | XMS REPORT ---
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 Active 490664149 Problem GERD without esophagitis K21.9 Active 621336145 Problem Essential hypertension I10 Active 00029150 Problem Renal mass, right N28.89 Active 724562175 ALLERGIES No Information ENCOUNTERS Encounter Location Date Diagnosis [place] [address] [address] Jul, Low back pain M54.5 ; Other chronic pain G89.29 and Observed sleep apnea G47.30 [place] [address] [address] Jul, Observed sleep apnea G47.30 [place] [address] [address] Jun, [place] [address] [address] May, Strain of lumbar region, initial encounter S39.012A and Essential hypertension I10 [place] [address] [address] May, [place] [address] [address] May, [place] [address] [address] Apr, Medicare annual wellness visit, initial Z00.00 [place] [address] [place] [id number] [place] [address] 13 Apr, 2018 [place] [address] [address] 12 Apr, 2018 Medicare annual wellness visit, initial Z00.00 ; Encounter for immunization Z23 ; GERD without esophagitis K21.9 ; Renal mass, right N28.89 and Advanced directives, counseling/discussion Z71.89 [place] [address] [address] 07 Apr, 2018 [place] [address] [address] March, Sternum pain R07.89 and Epigastric mass R19.06 [place] [address] [address] 30 Feb, 2018 Acute suppurative otitis media of right ear without spontaneous rupture of tympanic membrane, recurrence not specified H66.001 ; 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 and Epigastric mass R19.06 [facility] [address] [address] Feb, Sore throat J02.9 and Acute intractable headache, unspecified headache type R51 [facility] [address] [address] Jan, Sternum pain R07.89 and GERD without esophagitis K21.9 [place] [address] [place] [id number] [place] [address] Feb, Skin tags, multiple acquired L91.8 [place] [address] [address] 14 Feb, 2015 [place] [address] [address] 13 Feb, 2015 [place] [address] [address] Jun, [facility] [address] [facility] [id number], [place] [address] Jun, [facility] [address] [facility] [id number], [place] [address] May, [facility] [address] [facility] [id number], [place] [address] May, [facility] [address] [facility] [id number], [place] [address] May, [facility] [address] [facility] [id number], [place] [address] May, [facility] [address] [facility] [id number], [place] [address] May, [facility] [address], [place] [address] May, [facility] [address], [place] [address] May, [facility] [address] [place] [id number], [place] [address] May, [facility] [address] [place] [id number], [place] [address] May, IMMUNIZATIONS No Known Immunizations SOCIAL HISTORY Never Assessed REASON FOR VISIT sleep study request PLAN OF CARE VITAL SIGNS MEDICATIONS No Known Medications RESULTS No Results PROCEDURES No Known procedures INSTRUCTIONS MEDICATIONS ADMINISTERED No Known Medications MEDICAL (GENERAL) HISTORY Type Description Date Medical History Cancer left kidney Surgical History left hand surgery Surgical History total teeth extractions Surgical History Partial removal of left kidney due to cancer 07/01/2018 Hospitalization History [facility]U x 1 night Cancer 07/01/18
--- OUTSIDE RECORDS SUMMARY | 2019-05-26 16:21 | XMS REPORT ---
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 Active 264378057 Problem GERD without esophagitis K21.9 Active 884203962 Problem Essential hypertension I10 Active 67376667 Problem Renal mass, right N28.89 Active 831459117 ALLERGIES Substance Reaction Event Type Date Status Wasp Venom Unknown Drug Allergy Jul, Active ENCOUNTERS Encounter Location Date Diagnosis [place] [address] [address] Jul, Low back pain M54.5 ; Other chronic pain G89.29 and Observed sleep apnea G47.30 [place] [address] [address] Jul, Observed sleep apnea G47.30 [place] [address] [place] [id number] [place] [address] Jun, [place] [address] [address] May, Strain of lumbar region, initial encounter S39.012A and Essential hypertension I10 [place] [address] [address] May, [place] [address] [address] May, [place] [address] [address] 13 Apr, 2018 Medicare annual wellness visit, initial Z00.00 [place] [address] [address] 13 Apr, 2018 [place] [address] [address] 12 Apr, 2018 Medicare annual wellness visit, initial Z00.00 ; Encounter for immunization Z23 ; GERD without esophagitis K21.9 ; Renal mass, right N28.89 and Advanced directives, counseling/discussion Z71.89 [place] [address] [address] 07 Apr, 2018 [place] [address] [address] March, Sternum pain R07.89 and Epigastric mass R19.06 [place] [address] [address] Feb, Acute suppurative otitis media of right ear without spontaneous rupture of tympanic membrane, recurrence not specified H66.001 ; 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 and Epigastric mass R19.06 [facility] [address] [address] Feb, Sore throat J02.9 and Acute intractable headache, unspecified headache type R51 [facility] [address] [address] Jan, Sternum pain R07.89 and GERD without esophagitis K21.9 [place] [address] [address] Feb, Skin tags, multiple acquired L91.8 [place] [address] [address] 14 Feb, 2015 [place] [address] [address] Feb, [place] [address] [place] [address] Jun, [facility] [address] [place] [id number] [address] Jun, [facility] [address] [address] May, [facility] [address] [address] May, [facility] [address] [address] May, [facility] [address] [address] May, [facility] [address] [address] May, [facility] [address] [address] May, [facility] [address] [address] May, [facility] [address] [address] May, [facility] [address] [place] [id number] [address] May, IMMUNIZATIONS No Known Immunizations SOCIAL HISTORY Never Assessed REASON FOR VISIT Sleep study f/u [facility] PLAN OF CARE Activity Details Future/Pending Procedure SLEEP STUDY ([facility]) VITAL SIGNS Height 70 in 2018-08-09 Weight 219.0 lbs 2018-08-09 Temperature 98.5 degrees Fahrenheit 2018-08-09 Heart Rate 76 bpm 2018-08-09 Respiratory Rate 20 2018-08-09 Oximetry 98 % 2018-08-09 BMI 31.42 kg/m2 2018-08-09 Blood pressure systolic 132 mmHg 2018-08-09 Blood pressure diastolic 80 mmHg 2018-08-09 MEDICATIONS Medication Instructions Dosage Frequency Start Date End Date Duration Status Atenolol 25 MG Orally Once a day 1 tablet 24h 30 Active Neurontin 300 MG Orally Three times a day 1 capsule 8h Jul, 30 day(s) Active Protonix 40 mg Orally Once a day 1 tablet 24h 30 Active EpiPen 2-Compa 0.3 MG/0.3ML Injection Once a day. may repeat daily as needed. as directed Feb, Active Lipitor 40 mg Orally Once a day 1 tablet 24h May, 30 day(s) Active Cyclobenzaprine HCl 10 mg Orally 2 times a day 1 tablet as needed 12h Jul, Active RESULTS No Results PROCEDURES Procedure Date Ordered Result Body Site [facility] VISIT ESTABLISHED PATIENT Aug 09, 2018 INSTRUCTIONS MEDICATIONS ADMINISTERED No Known Medications MEDICAL (GENERAL) HISTORY Type Description Date Medical History Cancer left kidney Surgical History left hand surgery Surgical History total teeth extractions Surgical History Partial removal of left kidney due to cancer 07/01/2018 Hospitalization History KU x 1 night Cancer 07/01/18
--- OUTSIDE RECORDS SUMMARY | 2019-05-26 16:21 | XMS REPORT ---
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 Active 750751761 ALLERGIES No Information ENCOUNTERS Encounter Location Date Diagnosis [place] [address] [address] Aug, [place] [address] [address] Aug, [place] [address] [address] Jul, Low back pain M54.5 ; Other chronic pain G89.29 and Observed sleep apnea G47.30 [place] [address] [address] Jul, Observed sleep apnea G47.30 [place] [address] [place] [id number] [place] [address] Jun, [place] [address] [address] May, Strain of lumbar region, initial encounter S39.012A and Essential hypertension I10 [place] [address] [address] May, [place] [address] [place] [id number] [place] [address] May, [place] [address] [address] Apr, Medicare annual wellness visit, initial Z00.00 [place] [address] [place] [id number] [place] [address] 13 Apr, 2018 [place] [address] [address] 12 Apr, 2018 Medicare annual wellness visit, initial Z00.00 ; Encounter for immunization Z23 ; GERD without esophagitis K21.9 ; Renal mass, right N28.89 and Advanced directives, counseling/discussion Z71.89 [place] [address] [address] 07 Apr, 2018 [place] [address] [address] March, Sternum pain R07.89 and Epigastric mass R19.06 [place] [address] [address] 30 Feb, 2018 Acute suppurative otitis media of right ear without spontaneous rupture of tympanic membrane, recurrence not specified H66.001 ; 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 and Epigastric mass R19.06 [facility] [address] [place] [id number] [place] [address] Feb, Sore throat J02.9 and Acute intractable headache, unspecified headache type R51 [facility] [address] [place] [id number] [place] [address] Jan, Sternum pain R07.89 and GERD without esophagitis K21.9 [place] [address] [address] Feb, Skin tags, multiple acquired L91.8 [place] [address] [address] Feb, [facility] [address] [facility] [id number], [place] [address] Feb, [facility] [address] [facility] [id number], [place] [address] Jun, [facility] [address] [facility] [id number], [place] [address] Jun, [facility] [address] [facility] [id number], [place] [address] May, [facility] [address] [facility] [id number], [place] [address] May, [facility] [address] [facility] [id number], [place] [address] May, [facility] [address] [facility] [id number], [place] [address] May, [facility] [address], [place] [address] May, [facility] [address] [facility] [id number], [place] [address] May, [facility] [address] [id number], [place] [address] May, [facility] [address] [id number], [place] [address] May, [facility] [address] [id number], [place] [address] May, IMMUNIZATIONS No Known Immunizations SOCIAL HISTORY Never Assessed REASON FOR VISIT lab/ PLAN OF CARE VITAL SIGNS MEDICATIONS Unknown [...]
--- OUTSIDE RECORDS SUMMARY | 2019-05-26 16:21 | XMS REPORT ---
Author Author ROLANDO CLARK Organization [facility] Address [address] 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 [address] [place] [address] Jun, [facility] [address] [place] [address] May, Strain of lumbar region, initial encounter S39.012A and Essential hypertension I10 [facility] [address] [place] [id number] [address] May, [facility] [address] [place] [address] May, [facility] [address] [place] [address] Apr, Medicare annual wellness visit, initial Z00.00 [place] [address] [place] [address] 13 Apr, 2018 [place] [address] [address] 12 Apr, 2018 Medicare annual wellness visit, initial Z00.00 ; Encounter for immunization Z23 ; GERD without esophagitis K21.9 ; Renal mass, right N28.89 and Advanced directives, counseling/discussion Z71.89 [place] [address] [address] 07 Apr, 2018 [place] [address] [address] March, Sternum pain R07.89 and Epigastric mass R19.06 [place] [address] [address] 30 Feb, 2018 Acute suppurative otitis media of right ear without spontaneous rupture of tympanic membrane, recurrence not specified H66.001 ; 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 and Epigastric mass R19.06 [facility] [address] [address] Feb, Sore throat J02.9 and Acute intractable headache, unspecified headache type R51 [facility] [address] [address] Jan, Sternum pain R07.89 and GERD without esophagitis K21.9 [place] [address] [address] Feb, Skin tags, multiple acquired L91.8 [place] [address] [address] Feb, [place] [address] [address] Feb, [place] [address] [address] Jun, [place] [address] [address] Jun, [facility] [address] [facility] [id number] [address] May, [facility] [address] [facility] [id number] [address] May, [facility] [address] [facility] [id number] [address] May, [facility] [address] [facility] [id number] [address] May, [facility] [address] [facility] [id number] [address] May, [facility] [address] [place] [address] [id number] [address] May, [facility] [address] [address] May, [facility] [address] [address] May, [facility] [address] [place] [id number] [address] May, IMMUNIZATIONS No Known Immunizations SOCIAL HISTORY Never Assessed REASON FOR VISIT Start Lipitor PLAN OF CARE VITAL SIGNS MEDICATIONS Medication Instructions Dosage Frequency Start Date End Date Duration Status Lipitor 40 mg Orally Once a day 1 tablet 24h May, 30 day(s) Active RESULTS No Results PROCEDURES No Known procedures INSTRUCTIONS MEDICATIONS ADMINISTERED No Known Medications MEDICAL (GENERAL) HISTORY Type Description Date Surgical History left hand surgery Surgical History total teeth extractions
--- OUTSIDE RECORDS SUMMARY | 2019-05-26 16:21 | XMS REPORT ---
Author Author ROLANDO CLARK Organization [facility] Address [address] 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 Active 511798906 Problem GERD without esophagitis K21.9 Active 248287225 ALLERGIES Substance Reaction Event Type Date Status Wasp Venom Unknown Drug Allergy Apr, Active ENCOUNTERS Encounter Location Date Diagnosis [place] [id number] [place] [address] Jul, [facility] [address] [place] [address] Jun, [facility] [address] [place] [address] May, Strain of lumbar region, initial encounter S39.012A and Essential hypertension I10 [facility] [address] [place] [id number] [address] May, [facility] [address] [place] [address] May, [facility] [address] [place] [address] Apr, Medicare annual wellness visit, initial Z00.00 [facility] [address] [address] 13 Apr, 2018 [place] [address] [address] 12 Apr, 2018 Encounter for immunization Z23 ; Medicare annual wellness visit, initial Z00.00 ; GERD without esophagitis K21.9 ; Renal mass, right N28.89 and Advanced directives, counseling/discussion Z71.89 [place] [address] [address] 07 Apr, 2018 [place] [address] [address] March, Sternum pain R07.89 and Epigastric mass R19.06 [place] [address] [address] Feb, Acute suppurative otitis media of right ear without spontaneous rupture of tympanic membrane, recurrence not specified H66.001 ; 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 and Epigastric mass R19.06 [facility] [address] [address] Feb, Sore throat J02.9 and Acute intractable headache, unspecified headache type R51 [facility] [address] [place] [id number] [place] [address] Jan, Sternum pain R07.89 and GERD without esophagitis K21.9 [place] [address] [address] Feb, Skin tags, multiple acquired L91.8 [place] [address] [address] Feb, [place] [address] [address] Feb, [place] [address] [address] Jun, [place] [address] [place] [id number] [address] Jun, [facility] [address] [place] [id number] [address] May, [facility] [address] [address] May, [facility] [address] [address] May, [facility] [address] [address] May, [facility] [address] [address] May, [facility] [address] [address] May, [facility] [address] [address] May, [facility] [address] [address] May, [facility] [address] [place] [id number] [address] May, IMMUNIZATIONS Vaccine Route Administration Date Status TDAP (BOOSTRIX) IM Intramuscular April 30, 2018 Administered PPSV23 (PNEUMOVAX) IM Intramuscular April 30, 2018 Administered SOCIAL HISTORY Never Assessed REASON FOR VISIT Medicare AWV - Initial Visit -[facility] PLAN OF CARE Activity Details Follow Up 1 Year Reason: VITAL SIGNS Height 70 in 2018-04-30 Weight 214.8 lbs 2018-04-30 Temperature 98.2 degrees Fahrenheit 2018-04-30 Heart Rate 72 bpm 2018-04-30 Respiratory Rate 20 2018-04-30 BMI 30.82 kg/m2 2018-04-30 Blood pressure systolic 130 mmHg 2018-04-30 Blood pressure diastolic 80 mmHg 2018-04-30 MEDICATIONS Medication Instructions Dosage Frequency Start Date End Date Duration Status Omeprazole 20 MG Orally Once a day 1 capsule 24h Not-Taking EpiPen 2-Compa 0.3 MG/0.3ML Injection Once a day. may repeat daily as needed. as directed Feb, Active Protonix 40 mg Orally Once a day 1 tablet 24h Jan, 30 day(s) Active RESULTS No Results PROCEDURES Procedure Date Ordered Result Body Site IMMUNIZATION ADMIN, EACH ADD (please include units) April 30, 2018 [facility] VISIT IPPE/AWV April 30, 2018 ANNUAL WELLNES VST; PERSNL PPS INIT April 30, 2018 TDAP (BOOSTRIX) April 30, 2018 ADMN PNEUMCOC VAC NO FEE DAY April 30, 2018 SINGLE IMMUNIZATION ADMIN April 30, 2018 [address] TO[address]ACCO SCREEN RCVD TLK April 30, 2018 FALL RISK ASSESSMENT DOCD April 30, 2018 PPSV23 (PNEUMOVAX) April 30, 2018 NEG SCR D PT NOT ELIG F/U/PLN DOC April 30, 2018 INSTRUCTIONS MEDICATIONS ADMINISTERED No Known Medications MEDICAL (GENERAL) HISTORY Type Description Date Surgical History left hand surgery Surgical History total teeth extractions
--- OUTSIDE RECORDS SUMMARY | 2019-05-26 16:22 | XMS REPORT ---
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 Active 802942437 Problem Essential hypertension I10 Active 26854585 Problem Renal mass, right N28.89 Active 748587431 Problem Esophageal reflux 530.81 Active 738691359 Problem Cellulitis and abscess of trunk 682.2 Active 343488800 Problem 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 Active 668768771 Problem GERD without esophagitis K21.9 Active 025387826 ALLERGIES No Information ENCOUNTERS Encounter Location Date Diagnosis [place] [address] [address] Jul, [place] [address] [place] [address] Jun, [place] [address] [place] [id number] [address] May, Strain of lumbar region, initial encounter S39.012A and Essential hypertension I10 [facility] [address] [facility] [id number] [address] May, [facility] [address] [place] [address] May, [facility] [address] [place] [address] Apr, Medicare annual wellness visit, initial Z00.00 [facility] [address] [place] [address] Apr, [place] [address] [address] Apr, Medicare annual wellness visit, initial Z00.00 ; Encounter for immunization Z23 ; GERD without esophagitis K21.9 ; Renal mass, right N28.89 and Advanced directives, counseling/discussion Z71.89 [place] [address] [address] Apr, [place] [address] [address] March, Sternum pain R07.89 and Epigastric mass R19.06 [place] [address] [address] 30 Feb, 2018 Acute suppurative otitis media of right ear without spontaneous rupture of tympanic membrane, recurrence not specified H66.001 ; 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 and Epigastric mass R19.06 [facility] [address] [address] Feb, Sore throat J02.9 and Acute intractable headache, unspecified headache type R51 [facility] [address] [address] Jan, Sternum pain R07.89 and GERD without esophagitis K21.9 [place] [address] [address] Feb, Skin tags, multiple acquired L91.8 [place] [address] [address] Feb, [place] [address] [address] Feb, [place] [address] [address] Jun, [place] [address] [address] Jun, [facility] [address] [place] [id number] [address] May, [facility] [address] [address] May, [facility] [address] [address] May, [facility] [address] [address] May, [facility] [address] [address] May, [facility] [address] [place] [address] May, [facility] [address] [address] May, [facility] [address] [address] May, [facility] [address] [place] [id number] [address] May, IMMUNIZATIONS No Known Immunizations SOCIAL HISTORY Never Assessed REASON FOR VISIT CT referral PLAN OF CARE VITAL SIGNS MEDICATIONS Unknown Medications RESULTS No Results PROCEDURES No Known procedures INSTRUCTIONS MEDICATIONS ADMINISTERED No Known Medications MEDICAL (GENERAL) HISTORY Type Description Date Surgical History left hand surgery Surgical History total teeth extractions
--- OUTSIDE RECORDS SUMMARY | 2019-05-26 16:22 | XMS REPORT ---
Author Author KINDRA LAURENT [facility] Address [address] [place] [address] Care Team Providers Care General Maintenance Technician Name Role Phone SR KINDRA CARBALLO Unavailable PROBLEMS Type Condition ICD9-CM Code VWL13-KX Code Onset Dates Condition Status SNOMED Code Problem Other anaphylactic shock not elsewhere classified 995.0 Active 44045724 Problem Personal history of methicillin resistant Staphylococcus aureus V12.04 Active 213092352 Problem Essential hypertension I10 Active 15234873 Problem Renal mass, right N28.89 Active 233596561 Problem Esophageal reflux 530.81 Active 808662613 Problem Cellulitis and abscess of trunk 682.2 Active 273301715 Problem 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 Active 308117246 Problem GERD without esophagitis K21.9 Active 951476211 ALLERGIES Substance Reaction Event Type Date Status Wasp Venom Unknown Drug Allergy Feb, Active ENCOUNTERS Encounter Location Date Diagnosis [place] [address] [place] [address] May, Strain of lumbar region, initial encounter S39.012A and Essential hypertension I10 [place] [address] [place] [address] May, [place] [address] [place] [address] May, [place] [address] [place] [address] Apr, Medicare annual wellness visit, initial Z00.00 [place] [address] [place] [address] Apr, [place] [address] [place] [address] Apr, Medicare annual wellness visit, initial Z00.00 ; Encounter for immunization Z23 ; GERD without esophagitis K21.9 ; Renal mass, right N28.89 and Advanced directives, counseling/discussion Z71.89 [facility] [address] [place] [id number] [place] [address] 07 Apr, 2018 [facility] [address] [place] [id number] [place] [address] March, Sternum pain R07.89 and Epigastric mass R19.06 [place] [address] [address] Feb, Acute suppurative otitis media of right ear without spontaneous rupture of tympanic membrane, recurrence not specified H66.001 ; 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 and Epigastric mass R19.06 [facility] [address] [address] Feb, Sore throat J02.9 and Acute intractable headache, unspecified headache type R51 [facility] [address] [address] Jan, Sternum pain R07.89 and GERD without esophagitis K21.9 [place] [address] [place] [id number] [place] [address] Feb, Skin tags, multiple acquired L91.8 [place] [address] [place] [id number] [place] [address] Feb, [place] [address] [place] [id number] [place] [address] Feb, [place] [address] [address] Jun, [place] [address] [place] [id number] [place] [address] Jun, [place] [address] [place] [id number] [place] [address] May, [place] [address] [place] [id number] [address] May, [facility] [address] [facility] [id number], [place] [address] May, [facility] [address] [facility] [id number], [place] [address] May, [facility] [address] [facility] [id number], [place] [address] May, [facility] [address] [facility] [id number], [place] [address] May, [facility] [address], [place] [address] May, [facility] [address], [place] [address] May, [facility] [address], [place] [address] May, IMMUNIZATIONS No Known Immunizations SOCIAL HISTORY Never Assessed REASON FOR VISIT sore throat/headache Pt c/o sore throat and headaches since yesterday ELICIA Mercado PLAN OF CARE Activity Details Follow Up prn Reason: VITAL SIGNS Height 70 in 2018-02-21 Weight 209.0 lbs 2018-02-21 Temperature 97.8 degrees Fahrenheit 2018-02-21 Heart Rate 84 bpm 2018-02-21 Respiratory Rate 20 2018-02-21 BMI 29.99 kg/m2 2018-02-21 Blood pressure systolic 128 mmHg 2018-02-21 Blood pressure diastolic 82 mmHg 2018-02-21 MEDICATIONS Medication Instructions Dosage Frequency Start Date End Date Duration Status Protonix 40 mg Orally Once a day 1 tablet 24h Jan, 30 day(s) Active Amoxicillin 500 mg Orally every 8 hrs 1 capsule 8h Feb, Feb, 10 day(s) Active Omeprazole 20 MG Orally Once a day 1 capsule 24h Not-Taking RESULTS No Results PROCEDURES Procedure Date Ordered Result Body Site [facility] VISIT ESTABLISHED PATIENT February 21, 2018 INSTRUCTIONS MEDICATIONS ADMINISTERED No Known Medications MEDICAL (GENERAL) HISTORY Type Description Date Surgical History left hand surgery Surgical History total teeth extractions
--- OUTSIDE RECORDS SUMMARY | 2019-05-26 16:22 | XMS REPORT ---
Author Author MONICA ROMANO Organization [facility] Address [address] [place] [address] Care Team Providers Care Gospel Singer Name Role Phone MONICA ROMANO Unavailable PROBLEMS Type Condition ICD9-CM Code NKY84-VC Code Onset Dates Condition Status SNOMED Code Problem Other anaphylactic shock not elsewhere classified 995.0 Active 64140973 Problem Personal history of methicillin resistant Staphylococcus aureus V12.04 Active 539654736 Problem Essential hypertension I10 Active 93836064 Problem Renal mass, right N28.89 Active 963663141 Problem Esophageal reflux 530.81 Active 038282498 Problem Cellulitis and abscess of trunk 682.2 Active 175175053 Problem 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 [id number] [address] May, [facility] [address] [address] May, [facility] [address] [address] Apr, [facility] [id number] [address] Apr, Medicare annual wellness visit, initial Z00.00 [place] [address] [address] 12 Apr, 2018 Encounter for immunization Z23 ; Medicare annual wellness visit, initial Z00.00 ; GERD without esophagitis K21.9 ; Renal mass, right N28.89 and Advanced directives, counseling/discussion Z71.89 [place] [address] [address] 07 Apr, 2018 [place] [address] [address] March, Sternum pain R07.89 and Epigastric mass R19.06 [place] [address] [address] 30 Feb, 2018 Acute suppurative otitis media of right ear without spontaneous rupture of tympanic membrane, recurrence not specified H66.001 ; 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 and Epigastric mass R19.06 [facility] [address] [address] Feb, Sore throat J02.9 and Acute intractable headache, unspecified headache type R51 [facility] [address] [address] Jan, Sternum pain R07.89 and GERD without esophagitis K21.9 [place] [address] [address] Feb, Skin tags, multiple acquired L91.8 [place] [address] [address] Feb, [place] [address] [address] Feb, [place] [address] [address] Jun, [place] [address] [address] Jun, [facility] [address] [facility] [id number], [place] [address] May, [facility] [address] [facility] [id number], [place] [address] May, [facility] [id number] [address] May, [facility] [address], [place] [address] May, [facility] [id number] [address] May, [facility] [address], [place] [address] May, [facility] [address], [place] [address] May, [facility] [id number] [address] May, [facility] [address] [facility] [id number], [place] [address] May, IMMUNIZATIONS No Known Immunizations SOCIAL HISTORY Never Assessed REASON FOR VISIT Triage- Pt presented to clinic with complaints of left upper arm stiffness, pt s tates he got a tetnus shot yesterday and now has pain and swelling in the area. Assessed pts left arm, there is slight redness where the bandade glue was attach ed to skin but no other redness. upper arm does have a small area of firmness bu t is not red, and is not warm. suggested that patient ice the area 15 minutes on and 15 miutes off. and can also take ibuproben or tylenol for discomfort- Corbin Rodriguez RN, Discussed situation with Dr Sanchez who states to take nsaids and ice the area PLAN OF CARE VITAL SIGNS MEDICATIONS Unknown Medications RESULTS No Results PROCEDURES No Known procedures INSTRUCTIONS MEDICATIONS ADMINISTERED No Known Medications MEDICAL (GENERAL) HISTORY Type Description Date Surgical History left hand surgery Surgical History total teeth extractions
--- OUTSIDE RECORDS SUMMARY | 2019-05-26 16:22 | XMS REPORT ---
Author Author SRINIVAS ROBISON [facility] Address [address] [place] [address] Care Team Providers Care Zipper Setter Chainstitch Name Role Phone SRINIVAS ROBISON Unavailable PROBLEMS Type Condition ICD9-CM Code OKO38-GV Code Onset Dates Condition Status SNOMED Code Problem Other anaphylactic shock not elsewhere classified 995.0 Active 06648590 Problem Personal history of methicillin resistant Staphylococcus aureus V12.04 Active 433201685 Problem Essential hypertension I10 Active 32508031 Problem Renal mass, right N28.89 Active 086308907 Problem Esophageal reflux 530.81 Active 577697260 Problem Cellulitis and abscess of trunk 682.2 Active 459603643 Problem 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 Active 901132195 Problem GERD without esophagitis K21.9 Active 797957000 ALLERGIES Substance Reaction Event Type Date Status Wasp Venom Unknown Drug Allergy Jan, Active ENCOUNTERS Encounter Location Date Diagnosis [place] [id number] [place] [address] May, Strain of lumbar region, initial encounter S39.012A and Essential hypertension I10 [place] [address] [place] [address] May, [place] [id number] [place] [address] May, [place] [id number] [place] [address] Apr, Medicare annual wellness visit, initial Z00.00 [place] [id number] [place] [address] Apr, [place] [id number] [place] [address] 12 Ray, 2018 Encounter for immunization Z23 ; Medicare annual wellness visit, initial Z00.00 ; GERD without esophagitis K21.9 ; Renal mass, right N28.89 and Advanced directives, counseling/discussion Z71.89 [facility] [id number] [place] [address] 07 Apr, 2018 [facility] [id number] [place] [address] March, Sternum pain R07.89 and Epigastric mass R19.06 [place] [address] [address] Feb, Acute suppurative otitis media of right ear without spontaneous rupture of tympanic membrane, recurrence not specified H66.001 ; 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 and Epigastric mass R19.06 [facility] [id number] [place] [address] Feb, Sore throat J02.9 and Acute intractable headache, unspecified headache type R51 [facility] [id number] [place] [address] Jan, Sternum pain R07.89 and GERD without esophagitis K21.9 [place] [id number] [place] [address] Feb, Skin tags, multiple acquired L91.8 [place] [id number] [place] [address] Feb, [place] [id number] [place] [address] Feb, [place] [address] [address] Jun, [place] [id number] [place] [address] Jun, [facility] [id number] [place] [address] May, [place] [id number] [address] May, [facility] [address] [address] May, [facility] [address] [address] May, [facility] [address] [address] May, [facility] [id number] [address] May, [facility] [address] [address] May, [facility] [address] [address] May, [facility] [address] [address] May, IMMUNIZATIONS No Known Immunizations SOCIAL HISTORY Never Assessed REASON FOR VISIT Spot on "xyphoid process" that feels like it's going to burst, has progressively gotten bigger x 2 months- causing pain and nausea Jodee RUBI PLAN OF CARE Activity Details Follow Up prn Reason: VITAL SIGNS Height 70 in 2018-02-06 Weight 213.2 lbs 2018-02-06 Temperature 98.2 degrees Fahrenheit 2018-02-06 Heart Rate 80 bpm 2018-02-06 Respiratory Rate 18 2018-02-06 BMI 30.59 kg/m2 2018-02-06 Blood pressure systolic 152 mmHg 2018-02-06 Blood pressure diastolic 102 mmHg 2018-02-06 MEDICATIONS Medication Instructions Dosage Frequency Start Date End Date Duration Status Omeprazole 20 MG Orally Once a day 1 capsule 24h Active Protonix 40 mg Orally Once a day 1 tablet 24h Jan, 30 day(s) Active RESULTS Name Result Date Reference Range Xray : Chest 2 View (IN HOUSE) 2018-02-06 PROCEDURES Procedure Date Ordered Result Body Site X-RAY EXAM CHEST 2 VIEWS February 06, 2018 [facility] VISIT ESTABLISHED PATIENT February 06, 2018 INSTRUCTIONS MEDICATIONS ADMINISTERED No Known Medications MEDICAL (GENERAL) HISTORY Type Description Date Surgical History left hand surgery Surgical History total teeth extractions
--- OUTSIDE RECORDS SUMMARY | 2019-05-26 16:22 | XMS REPORT ---
Author Author ROLANDO CLARK Organization [facility] Address [address] 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 Active 486555777 Problem GERD without esophagitis K21.9 Active 297554720 ALLERGIES No Information ENCOUNTERS Encounter Location Date Diagnosis [facility] [address] [place] [address] Jul, [facility] [address] [place] [address] Jun, [facility] [address] [address] May, Strain of lumbar region, initial encounter S39.012A and Essential hypertension I10 [facility] [id number] [address] May, [facility] [address] [place] [address] May, [facility] [address] [place] [address] Apr, [facility] [id number] [place] [address] Apr, Medicare annual wellness visit, initial Z00.00 [facility] [address] [address] 12 Apr, 2018 Medicare annual wellness visit, initial Z00.00 ; Encounter for immunization Z23 ; GERD without esophagitis K21.9 ; Renal mass, right N28.89 and Advanced directives, counseling/discussion Z71.89 [place] [address] [address] 07 Apr, 2018 [place] [address] [address] March, Sternum pain R07.89 and Epigastric mass R19.06 [place] [address] [address] 30 Feb, 2018 Acute suppurative otitis media of right ear without spontaneous rupture of tympanic membrane, recurrence not specified H66.001 ; 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 and Epigastric mass R19.06 [facility] [address] [address] Feb, Sore throat J02.9 and Acute intractable headache, unspecified headache type R51 [facility] [address] [address] Jan, Sternum pain R07.89 and GERD without esophagitis K21.9 [place] [address] [address] Feb, Skin tags, multiple acquired L91.8 [place] [address] [address] Feb, [place] [address] [address] Feb, [place] [address] [address] Jun, [place] [address] [address] Jun, [facility] [address] [facility] [id number] [address] May, [facility] [address] [facility] [id number] [address] May, [facility] [address] [facility] [id number] [address] May, [facility] [address] [facility] [id number] [address] May, [facility] [address] [facility] [id number] [address] May, [facility] [address] [address] May, [facility] [address] [address] May, [facility] [address] [address] May, [facility] [id number] [address] May, IMMUNIZATIONS No Known Immunizations SOCIAL HISTORY Never Assessed REASON FOR VISIT Lab (walk-in) PLAN OF CARE VITAL SIGNS MEDICATIONS Unknown Medications RESULTS No Results PROCEDURES Procedure Date Ordered Result Body Site LAB NOT BILLED BY [facility] May 01, 2018 GARETH GOLDEN* May 01, 2018 INSTRUCTIONS MEDICATIONS ADMINISTERED No Known Medications MEDICAL (GENERAL) HISTORY Type Description Date Surgical History left hand surgery Surgical History total teeth extractions
--- OUTSIDE RECORDS SUMMARY | 2019-05-26 16:22 | XMS REPORT ---
Author Author MONICA ROMANO Organization [facility] [place] Address [address] [place] [address] Care Team Providers Care Swift Tender Name Role Phone MONICA ROMANO Unavailable PROBLEMS Type Condition ICD9-CM Code IFO23-UR Code Onset Dates Condition Status SNOMED Code Problem Other anaphylactic shock not elsewhere classified 995.0 Active 96564863 Problem Personal history of methicillin resistant Staphylococcus aureus V12.04 Active 742517962 Problem Essential hypertension I10 Active 80371171 Problem Renal mass, right N28.89 Active 524228622 Problem Esophageal reflux 530.81 Active 979915616 Problem Cellulitis and abscess of trunk 682.2 Active 313175127 Problem 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 Active 129217852 Problem GERD without esophagitis K21.9 Active 237219404 ALLERGIES Substance Reaction Event Type Date Status Wasp Venom Unknown Drug Allergy Feb, Active ENCOUNTERS Encounter Location Date Diagnosis [place] [id number] [place] [address] May, Strain of lumbar region, initial encounter S39.012A and Essential hypertension I10 [place] [address] [place] [address] May, [place] [id number] [place] [address] May, [place] [address] [place] [address] Apr, Medicare annual wellness visit, initial Z00.00 [place] [id number] [place] [address] Apr, [place] [address] [place] [address] Apr, Encounter for immunization Z23 ; Medicare annual wellness visit, initial Z00.00 ; GERD without esophagitis K21.9 ; Renal mass, right N28.89 and Advanced directives, counseling/discussion Z71.89 [facility] [place] [id number] [place] [address] 07 Apr, 2018 [facility] [place] [id number] [place] [address] March, Sternum pain R07.89 and Epigastric mass R19.06 [place] [address] [address] Feb, Acute suppurative otitis media of right ear without spontaneous rupture of tympanic membrane, recurrence not specified H66.001 ; 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 and Epigastric mass R19.06 [facility] [id number] [place] [address] Feb, Sore throat J02.9 and Acute intractable headache, unspecified headache type R51 [facility] [id number] [place] [address] Jan, Sternum pain R07.89 and GERD without esophagitis K21.9 [place] [id number] [place] [address] Feb, Skin tags, multiple acquired L91.8 [place] [id number] [place] [address] Feb, [place] [id number] [place] [address] Feb, [place] [id number] [place] [address] Jun, [place] [id number] [place] [address] Jun, [facility] [place] [id number] [place] [address] May, [place] [address] [address] [id number] [address] May, [facility] [place] [id number] [address] May, [facility] [place] [address] [address] May, [facility] [place] [address] [address] May, [facility] [place] [address] [address] May, [facility] [place] [address] [address] May, [facility] [place] [address] [address] May, [facility] [place] [address] [address] May, IMMUNIZATIONS No Known Immunizations SOCIAL HISTORY Never Assessed REASON FOR VISIT ESTABLISH CARE---Katty, PHQ2, AUDIT-C PLAN OF CARE VITAL SIGNS Height 70 in 2018-03-18 Weight 213 lbs 2018-03-18 Temperature 97.8 degrees Fahrenheit 2018-03-18 Heart Rate 70 bpm 2018-03-18 Respiratory Rate 20 2018-03-18 BMI 30.56 kg/m2 2018-03-18 Blood pressure systolic 134 mmHg 2018-03-18 Blood pressure diastolic 92 mmHg 2018-03-18 MEDICATIONS Medication Instructions Dosage Frequency Start Date End Date Duration Status EpiPen 2-Compa 0.3 MG/0.3ML Injection Once a day. may repeat daily as needed. as directed Feb, Active Omeprazole 20 MG Orally Once a day 1 capsule 24h Not-Taking Protonix 40 mg Orally Once a day 1 tablet 24h Jan, 30 day(s) Active Augmentin 875-125 MG Orally every 12 hrs 1 tablet 12h Feb, March, 10 day(s) Active PredniSONE 20 mg Orally Once a day 2 tablets 24h Feb, March, 05 days Active RESULTS No Results PROCEDURES Procedure Date Ordered Result Body Site [facility] VISIT ESTABLISHED PATIENT March 18, 2018 INSTRUCTIONS MEDICATIONS ADMINISTERED No Known Medications MEDICAL (GENERAL) HISTORY Type Description Date Surgical History left hand surgery Surgical History total teeth extractions
--- OUTSIDE RECORDS SUMMARY | 2019-05-26 16:22 | XMS REPORT ---
Author Author MONICA ROMANO Organization [facility] Address [address] [place] [address] Care Team Providers Care Administrative Court Justice Name Role Phone MONICA ROMANO Unavailable PROBLEMS Type Condition ICD9-CM Code WAH34-XM Code Onset Dates Condition Status SNOMED Code Problem Other anaphylactic shock not elsewhere classified 995.0 Active 71570635 Problem Personal history of methicillin resistant Staphylococcus aureus V12.04 Active 074624515 Problem Essential hypertension I10 Active 71711768 Problem Renal mass, right N28.89 Active 219420072 Problem Esophageal reflux 530.81 Active 886157304 Problem Cellulitis and abscess of trunk 682.2 Active 234141824 Problem 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 Active 587226949 Problem GERD without esophagitis K21.9 Active 882518485 ALLERGIES No Information ENCOUNTERS Encounter Location Date Diagnosis [place] [id number] [place] [phone] May, Strain of lumbar region, initial encounter S39.012A and Essential hypertension I10 [place] [address] [address] May, [place] [id number] [place] [address] May, [place] [address] [place] [address] Apr, Medicare annual wellness visit, initial Z00.00 [place] [address] [place] [id number] [place] [phone] Apr, [place] [address] [place] [phone] Apr, Encounter for immunization Z23 ; Medicare annual wellness visit, initial Z00.00 ; GERD without esophagitis K21.9 ; Renal mass, right N28.89 and Advanced directives, counseling/discussion Z71.89 [facility] [address] [address] Apr, [facility] [address] [address] March, Sternum pain R07.89 and Epigastric mass R19.06 [facility] [address] [address] Feb, Acute suppurative otitis media of right ear without spontaneous rupture of tympanic membrane, recurrence not specified H66.001 ; 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 and Epigastric mass R19.06 [facility] [address] [address] Feb, Sore throat J02.9 and Acute intractable headache, unspecified headache type R51 [facility] [address] [address] Jan, Sternum pain R07.89 and GERD without esophagitis K21.9 [place] [address] [address] Feb, Skin tags, multiple acquired L91.8 [place] [address] [address] Feb, [facility] [address] [address] Feb, [place] [address] [address] Jun, [facility] [address] [address] Jun, [facility] [address] [address] May, [place] [address] [address] May, [facility] [address] [facility] [id number] [address] May, [facility] [address] [facility] [id number] [address] May, [facility] [address] [place] [id number] [address] May, [facility] [address] [address] May, [facility] [address] [place] [id number] [address] May, [facility] [address] [place] [id number] [address] May, [facility] [address] [place] [id number] [address] May, IMMUNIZATIONS No Known Immunizations SOCIAL HISTORY Never Assessed REASON FOR VISIT US results PLAN OF CARE VITAL SIGNS MEDICATIONS Unknown Medications RESULTS No Results PROCEDURES No Known procedures INSTRUCTIONS MEDICATIONS ADMINISTERED No Known Medications MEDICAL (GENERAL) HISTORY Type Description Date Surgical History left hand surgery Surgical History total teeth extractions
--- OUTSIDE RECORDS SUMMARY | 2019-05-26 16:23 | XMS REPORT | Continuity of Care Document ---
Author Organization Unknown Address Unknown Allergies Active Description Code Type Severity Reaction Onset Reported/Identified Relationship to Patient Clinical Status Yes Wasp Venom Drug Allergy N/A N/A 06/23/2014 Yes BEES BEES Unknown N/A 01/22/2019 Yes Penicillins [id number] Drug Allergy Unknown N/A 02/25/2019 Medications There is no data. Problems Date Dx Coded Attending Type Code Diagnosis Diagnosed By 06/03/2014 LOBO CASAREZ APRN 682.2 CELLULITIS AND ABSCESS OF TRUNK 06/03/2014 LOBO CASAREZ APRN R V12.04 PERSONAL HISTORY OF METHICILLIN RESISTANT STAPHYLOCOCCUS AUREUS 06/03/2014 LENA ASHTON APRN 682.2 CELLULITIS AND ABSCESS OF TRUNK 06/03/2014 LENA ASHTON APRN S V12.04 PERSONAL HISTORY OF METHICILLIN RESISTANT STAPHYLOCOCCUS AUREUS 06/23/2014 LENA ASHTON APRN S 530.81 GERD 06/23/2014 LENA ASHTON APRN S 995.0 OTHER ANAPHYLACTIC REACTION 04/24/2017 ROMIE ORTIZ DC Ot M54.15 RADICULOPATHY, THORACOLUMBAR REGION 04/24/2017 ROMIE ORTIZ DC Ot M54.5 LOW BACK PAIN 04/24/2017 ROMIE ORTIZ DC Ot M79.1 MYALGIA 05/14/2017 ROMIE ORTIZ DC Ot M54.15 RADICULOPATHY, THORACOLUMBAR REGION 05/14/2017 ROMIE ORTIZ DC, Ot M54.5 LOW BACK PAIN 05/14/2017 ROMIE ORTIZ DC, Ot M79.1 MYALGIA 08/17/2017 ROMIE ORTIZ DC, Ot M54.15 RADICULOPATHY, THORACOLUMBAR REGION 08/17/2017 ROMIE ORTIZ DC, Ot M54.5 LOW BACK PAIN 08/17/2017 ROMIE ORTIZ DC, Ot M79.1 MYALGIA 08/17/2017 ERICA ZAMBRANO Ot F17.200 NICOTINE DEPENDENCE, UNSPECIFIED, UNCOMP 08/17/2017 ERICA ZAMBRANO Ot S61.411A LACERATION WITHOUT FOREIGN BODY OF RIGHT 08/17/2017 ERICA ZAMBRANO Ot W45.8XXA OTH FOREIGN BODY OR OBJECT ENTERING THRO 08/17/2017 ERICA ZAMBRANO Ot Z23 ENCOUNTER FOR IMMUNIZATION 08/27/2017 STEPHY ORNELAS MD Ot S61.411D LACERATION WITHOUT FOREIGN BODY OF RIGHT 08/27/2017 STEPHY ORNELAS MD Ot X58.XXXD EXPOSURE TO OTHER SPECIFIED FACTORS, SUB 03/19/2018 ROMIE ORTIZ DC Ot M54.15 RADICULOPATHY, THORACOLUMBAR REGION 03/19/2018 ROMIE ORTIZ DC Ot M54.5 LOW BACK PAIN 03/19/2018 ROMIE ORTIZ DC Ot M79.1 MYALGIA 03/20/2018 ROMIE ORTIZ DC Ot M54.15 RADICULOPATHY, THORACOLUMBAR REGION 03/20/2018 ROMIE ORTIZ DC Ot M54.5 LOW BACK PAIN 03/20/2018 ROMIE ORTIZ DC Ot M79.1 MYALGIA 03/22/2018 MONICA ROMANO Ot R19.06 EPIGASTRIC SWELLING, MASS OR LUMP 04/08/2018 MONICA ROMANO Ot R19.06 EPIGASTRIC SWELLING, MASS OR LUMP 04/12/2018 MONICA ROMANOP Ot N28.89 OTHER SPECIFIED DISORDERS OF KIDNEY AND 04/12/2018 MONICA ROMANOP Ot R06.00 DYSPNEA, UNSPECIFIED 04/12/2018 MONICA ROMANOP Ot R07.89 OTHER CHEST PAIN 04/12/2018 MONICA ROMANOP Ot N28.89 OTHER SPECIFIED DISORDERS OF KIDNEY AND 04/12/2018 MONICA ROMANOP Ot R06.00 DYSPNEA, UNSPECIFIED 04/12/2018 MONICA ROMANOP Ot R07.89 OTHER CHEST PAIN 05/01/2018 MONICA ROMANOP Ot N28.89 OTHER SPECIFIED DISORDERS OF KIDNEY AND 05/01/2018 ROSALINA, MONICA T [employer] Ot R06.00 DYSPNEA, UNSPECIFIED 05/01/2018 ROSALINA MONICA Davalos [employer] Ot R07.89 OTHER CHEST PAIN 05/15/2018 BIANCA VELASQUEZ, JUAN PABLO Callejas Ot N28.9 DISORDER OF KIDNEY AND URETER, UNSPECIFI 05/17/2018 BIANCA VELASQUEZ, JUAN PABLO Callejas Ot N28.9 DISORDER OF KIDNEY AND URETER, UNSPECIFI 06/12/2018 JUAN PABLO VALENZUELA MD Ot N28.9 DISORDER OF KIDNEY AND URETER, UNSPECIFI 06/18/2018 BIANCA VELASQUEZ, JUAN PABLO A Ot N28.89 OTHER SPECIFIED DISORDERS OF KIDNEY AND 07/10/2018 STEPHY ORNELAS MD Ot E78.00 PURE HYPERCHOLESTEROLEMIA, UNSPECIFIED 07/10/2018 STEPHY ORNELAS MD Ot G89.18 OTHER ACUTE POSTPROCEDURAL PAIN 07/10/2018 STEPHY ORNELAS MD Ot I10 ESSENTIAL (PRIMARY) HYPERTENSION 07/10/2018 STEPHY ORNELAS MD Ot K21.9 GASTRO-ESOPHAGEAL REFLUX DISEASE WITHOUT 07/10/2018 STEPHY ORNELAS MD Ot R10.32 LEFT LOWER QUADRANT PAIN 07/10/2018 STEPHY ORNELAS MD Ot R30.0 DYSURIA 07/10/2018 STEPHY ORNELAS MD Ot R31.0 GROSS HEMATURIA 07/10/2018 STEPHY ORNELAS MD Ot Z85.528 PERSONAL HISTORY OF OTHER MALIGNANT NEOP 07/10/2018 STEPHY ORNELAS MD Ot Z87.19 PERSONAL HISTORY OF OTHER DISEASES OF TH 07/10/2018 STEPHY ORNELAS MD Ot Z88.0 ALLERGY STATUS TO PENICILLIN 07/10/2018 STEPHY ORNELAS MD Ot Z90.5 ACQUIRED ABSENCE OF KIDNEY 07/12/2018 STEPHY ORNELAS MD Ot E78.00 PURE HYPERCHOLESTEROLEMIA, UNSPECIFIED 07/12/2018 STEPHY ORNELAS MD Ot G89.18 OTHER ACUTE POSTPROCEDURAL PAIN 07/12/2018 STEPHY ORNELAS MD Ot I10 ESSENTIAL (PRIMARY) HYPERTENSION 07/12/2018 STEPHY ORNELAS MD Ot K21.9 GASTRO-ESOPHAGEAL REFLUX DISEASE WITHOUT 07/12/2018 JOHNSON VELASQUEZ, STEPHY Davalos Ot R10.32 LEFT LOWER QUADRANT PAIN 07/12/2018 JOHNSON VELASQUEZ, STEPHY Davalos Ot R30.0 DYSURIA 07/12/2018 STEPYH ORNELAS MD Ot R31.0 GROSS HEMATURIA 07/12/2018 STEPHY ORNELAS MD Ot Z85.528 PERSONAL HISTORY OF OTHER MALIGNANT NEOP 07/12/2018 STEPHY ORNELAS MD Ot Z87.19 PERSONAL HISTORY OF OTHER DISEASES OF TH 07/12/2018 JOHNSON VELASQUEZ, STEPHY Davalos Ot Z88.0 ALLERGY STATUS TO PENICILLIN 07/12/2018 STEPHY ORNELAS MD Ot Z90.5 ACQUIRED ABSENCE OF KIDNEY 08/23/2018 ROMIE ORTIZ DC, Ot M54.15 RADICULOPATHY, THORACOLUMBAR REGION 08/23/2018 ROMIE ORTIZ DC, Ot M54.5 LOW BACK PAIN 08/23/2018 ROMIE ORTIZ DC, Ot M79.1 MYALGIA 08/23/2018 MONICA ROMANO Ot R19.06 EPIGASTRIC SWELLING, MASS OR LUMP 08/23/2018 MONICA ROMANO [employer] Ot N28.89 OTHER SPECIFIED DISORDERS OF KIDNEY AND 08/23/2018 MONICA ROMANOP Ot R06.00 DYSPNEA, UNSPECIFIED 08/23/2018 MONICA ROMANO Ot R07.89 OTHER CHEST PAIN 08/23/2018 JUAN PABLO VALENZUELA MD Ot N28.9 DISORDER OF KIDNEY AND URETER, UNSPECIFI 08/23/2018 JUAN PABLO VALENZUELA MD Ot N28.89 OTHER SPECIFIED DISORDERS OF KIDNEY AND 08/23/2018 MONICA ROMANOP Ot G47.33 OBSTRUCTIVE SLEEP APNEA (ADULT) (PEDIATR 08/26/2018 MONICA ROMANOP Ot G47.33 OBSTRUCTIVE SLEEP APNEA (ADULT) (PEDIATR 09/03/2018 ROMIE ORTIZ DC, Ot M54.15 RADICULOPATHY, THORACOLUMBAR REGION 09/03/2018 ROMIE ORTIZ DC, Ot M54.5 LOW BACK PAIN 09/03/2018 ROMIE ORTIZ DC, Ot M79.1 MYALGIA 09/03/2018 MONICA ROMANO Anoop [employer] Ot R19.06 EPIGASTRIC SWELLING, MASS OR LUMP 09/03/2018 ROSALINA MONICA Anoop [employer] Ot N28.89 OTHER SPECIFIED DISORDERS OF KIDNEY AND 09/03/2018 ROSALINA MONICA Anoop [employer] Ot R06.00 DYSPNEA, UNSPECIFIED 09/03/2018 ROSALINA MONICA Anoop [employer] Ot R07.89 OTHER CHEST PAIN 09/03/2018 JUAN PABLO VALENZUELA MD Ot N28.9 DISORDER OF KIDNEY AND URETER, UNSPECIFI 09/03/2018 JUAN PABLO VALENZUELA MD Ot N28.89 OTHER SPECIFIED DISORDERS OF KIDNEY AND 09/03/2018 ROSALINA MONICA Anoop [employer] Ot G47.33 OBSTRUCTIVE SLEEP APNEA (ADULT) (PEDIATR 09/03/2018 ROSALINA MONICA Anoop [employer] Ot N28.89 OTHER SPECIFIED DISORDERS OF KIDNEY AND 09/03/2018 ROSALINA MONICA Anoop [employer] Ot R06.00 DYSPNEA, UNSPECIFIED 09/03/2018 ROSALINA MONICA Anoop [employer] Ot R07.89 OTHER CHEST PAIN 09/05/2018 ROSALINA MONICA Anoop [employer] Ot G47.33 OBSTRUCTIVE SLEEP APNEA (ADULT) (PEDIATR 09/06/2018 ROSALINA MONICA Anoop [employer] Ot G47.33 OBSTRUCTIVE SLEEP APNEA (ADULT) (PEDIATR 09/10/2018 ROSALINA MONICA Anoop [employer] Ot G47.33 OBSTRUCTIVE SLEEP APNEA (ADULT) (PEDIATR 09/12/2018 ROSALINA MONICA Anoop [employer] Ot G47.33 OBSTRUCTIVE SLEEP APNEA (ADULT) (PEDIATR 09/13/2018 ROMIE ORTIZ DC Ot M54.15 RADICULOPATHY, THORACOLUMBAR REGION 09/13/2018 ROMIE ORTIZ DC Ot M54.5 LOW BACK PAIN 09/13/2018 ROMIE ORTIZ DC Ot M79.1 MYALGIA 09/13/2018 ROSALINA MONICA Anoop [employer] Ot R19.06 EPIGASTRIC SWELLING, MASS OR LUMP 09/13/2018 MONICA ROMANO [employer] Ot N28.89 OTHER SPECIFIED DISORDERS OF KIDNEY AND 09/13/2018 MONICA ROMANO [employer] Ot R06.00 DYSPNEA, UNSPECIFIED 09/13/2018 MONICA ROMANO [employer] Ot R07.89 OTHER CHEST PAIN 09/13/2018 JUAN PABLO VALENZUELA MD Ot N28.9 DISORDER OF KIDNEY AND URETER, UNSPECIFI 09/13/2018 JUAN PABLO VALENZUELA MD Ot N28.89 OTHER SPECIFIED DISORDERS OF KIDNEY AND 09/16/2018 ORTIZ DC, ROMIE J Ot M54.15 RADICULOPATHY, THORACOLUMBAR REGION 09/16/2018 ORTIZ DC, ROMIE De Paz Ot M54.5 LOW BACK PAIN 09/16/2018 ORTIZ JOSE, ROMIE De Paz Ot M79.1 MYALGIA 09/16/2018 MONICA ROMANOP Ot R19.06 EPIGASTRIC SWELLING, MASS OR LUMP 09/16/2018 MONICA ROMANO [employer] Ot N28.89 OTHER SPECIFIED DISORDERS OF KIDNEY AND 09/16/2018 MONICA ROMANO [employer] Ot R06.00 DYSPNEA, UNSPECIFIED 09/16/2018 MONICA ROMANO [employer] Ot R07.89 OTHER CHEST PAIN 09/16/2018 JUAN PABLO VALENZUELA MD Ot N28.9 DISORDER OF KIDNEY AND URETER, UNSPECIFI 09/16/2018 JUAN PABLO VALENZUELA MD Ot N28.89 OTHER SPECIFIED DISORDERS OF KIDNEY AND 09/16/2018 ORTIZ DCROMIE Ot M54.15 RADICULOPATHY, THORACOLUMBAR REGION 09/16/2018 ORTIZ ROMIE GARCIA Ot M54.5 LOW BACK PAIN 09/16/2018 ROMIE ORTIZ DC Ot M79.1 MYALGIA 09/16/2018 MONICA ROMANOP Ot R19.06 EPIGASTRIC SWELLING, MASS OR LUMP 09/16/2018 MONICA ROMANO [employer] Ot N28.89 OTHER SPECIFIED DISORDERS OF KIDNEY AND 09/16/2018 MONICA ROMANO [employer] Ot R06.00 DYSPNEA, UNSPECIFIED 09/16/2018 MONICA ROMANO [employer] Ot R07.89 OTHER CHEST PAIN 09/16/2018 JUAN PABLO VALENZUELA MD Ot N28.9 DISORDER OF KIDNEY AND URETER, UNSPECIFI 09/16/2018 JUAN PABLO VALENZUELA MD Ot N28.89 OTHER SPECIFIED DISORDERS OF KIDNEY AND 09/16/2018 JUAN PABLO VALENZUELA MD Ot N28.9 DISORDER OF KIDNEY AND URETER, UNSPECIFI 10/28/2018 ORTIZ DC, ROMIE De Paz Ot M54.15 RADICULOPATHY, THORACOLUMBAR REGION 10/28/2018 ORTIZ DC, ROMIE De Paz Ot M54.5 LOW BACK PAIN 10/28/2018 DIANA GARCIA, ROMIE De Paz Ot M79.1 MYALGIA 10/28/2018 MONICA ROMANO Ot R19.06 EPIGASTRIC SWELLING, MASS OR LUMP 10/28/2018 MONICA ROMANO Ot N28.89 OTHER SPECIFIED DISORDERS OF KIDNEY AND 10/28/2018 MONICA ROMANO Ot R06.00 DYSPNEA, UNSPECIFIED 10/28/2018 MONICA ROMANO Ot R07.89 OTHER CHEST PAIN 10/28/2018 JUAN PABLO VALENZUELA MD Ot N28.9 DISORDER OF KIDNEY AND URETER, UNSPECIFI 10/28/2018 JUAN PABLO VALENZUELA MD Ot N28.89 OTHER SPECIFIED DISORDERS OF KIDNEY AND 12/19/2018 DIANA GARCIA, ROMIE De Paz Ot M54.15 RADICULOPATHY, THORACOLUMBAR REGION 12/19/2018 DIANA GARCIA, ROMIE De Paz Ot M54.5 LOW BACK PAIN 12/19/2018 DIANA GARCIA, ROMIE De Paz Ot M79.1 MYALGIA 12/19/2018 MONICA ROMANO Ot R19.06 EPIGASTRIC SWELLING, MASS OR LUMP 12/19/2018 MONICA ROMANO Ot N28.89 OTHER SPECIFIED DISORDERS OF KIDNEY AND 12/19/2018 MONICA ROMANO Ot R06.00 DYSPNEA, UNSPECIFIED 12/19/2018 MONICA ROMANO Ot R07.89 OTHER CHEST PAIN 12/19/2018 JUAN PABLO VALENZUELA MD Ot N28.9 DISORDER OF KIDNEY AND URETER, UNSPECIFI 12/19/2018 JUAN PABLO VALENZUELA MD Ot N28.89 OTHER SPECIFIED DISORDERS OF KIDNEY AND 12/19/2018 JUAN PABLO VALENZUELA MD Ot N28.89 OTHER SPECIFIED DISORDERS OF KIDNEY AND 01/22/2019 REESE DO DEVON K Ot E78.00 PURE HYPERCHOLESTEROLEMIA, UNSPECIFIED 01/22/2019 REESE YAMILETH STACYA K Ot F17.210 NICOTINE DEPENDENCE, CIGARETTES, UNCOMPL 01/22/2019 YAMILETH LEIGH DOA K Ot G47.30 SLEEP APNEA, UNSPECIFIED 01/22/2019 REESE DO DEVON K Ot I10 ESSENTIAL (PRIMARY) HYPERTENSION 01/22/2019 DEVON LEIGH DO Ot J06.9 ACUTE UPPER RESPIRATORY INFECTION, UNSPE 01/22/2019 REESE DEVON STACY Ot J40 BRONCHITIS, NOT SPECIFIED ACUTE OR CH 01/22/2019 DEVON LEIGH DO Ot K21.9 GASTRO-ESOPHAGEAL REFLUX DISEASE WITHOUT 01/22/2019 REESE DEVON STACY Ot R05 COUGH 01/22/2019 REESE DEVON STACY Ot R51 HEADACHE 01/22/2019 REESE YAMILETH STACYA Darryl Ot Z85.528 PERSONAL HISTORY OF OTHER MALIGNANT NEOP 01/22/2019 DEVON LEIGH DO Ot Z88.0 ALLERGY STATUS TO PENICILLIN 01/22/2019 DEVON LEIGH DO Ot Z90.5 ACQUIRED ABSENCE OF KIDNEY 01/22/2019 ROMIE ORTIZ DC Ot M54.15 RADICULOPATHY, THORACOLUMBAR REGION 01/22/2019 ROMIE ORTIZ DC Ot M54.5 LOW BACK PAIN 01/22/2019 ROMIE ORTIZ DC Ot M79.1 MYALGIA 01/22/2019 MONICA ROMANO Ot R19.06 EPIGASTRIC SWELLING, MASS OR LUMP 01/22/2019 MONICA ROMANO Ot N28.89 OTHER SPECIFIED DISORDERS OF KIDNEY AND 01/22/2019 MONICA ROMANO Ot R06.00 DYSPNEA, UNSPECIFIED 01/22/2019 MONICA ROMANO Ot R07.89 OTHER CHEST PAIN 01/22/2019 JUAN PABLO VALENZUELA MD Ot N28.9 DISORDER OF KIDNEY AND URETER, UNSPECIFI 01/22/2019 JUAN PABLO VALENZUELA MD Ot N28.89 OTHER SPECIFIED DISORDERS OF KIDNEY AND 01/24/2019 YAMILETH LEIGH DOA Darryl Ot E78.00 PURE HYPERCHOLESTEROLEMIA, UNSPECIFIED 01/24/2019 REESE YAMILETH STACYA Darryl Ot F17.210 NICOTINE DEPENDENCE, CIGARETTES, UNCOMPL 01/24/2019 REESEYAMILETH Encarnacion DOA Darryl Ot G47.30 SLEEP APNEA, UNSPECIFIED 01/24/2019 DEVON LEIGH DO Ot I10 ESSENTIAL (PRIMARY) HYPERTENSION 01/24/2019 YAMILETH LEIGH DOA Darryl Ot J06.9 ACUTE UPPER RESPIRATORY INFECTION, UNSPE 01/24/2019 DEVON LEIGH DO Ot J40 BRONCHITIS, NOT SPECIFIED ACUTE OR CH 01/24/2019 DEVON LEIGH DO Ot K21.9 GASTRO-ESOPHAGEAL REFLUX DISEASE WITHOUT 01/24/2019 REESE DO, DEVON K Ot R05 COUGH 01/24/2019 REESE DO, DEVON K Ot R51 HEADACHE 01/24/2019 REESE DO, DEVON K Ot Z85.528 PERSONAL HISTORY OF OTHER MALIGNANT NEOP 01/24/2019 REESE DO, DEVON Andrews Ot Z88.0 ALLERGY STATUS TO PENICILLIN 01/24/2019 REESE DO, DEVON Andrews Ot Z90.5 ACQUIRED ABSENCE OF KIDNEY 03/15/2019 STEPHY ORNELAS MD Ot E78.00 PURE HYPERCHOLESTEROLEMIA, UNSPECIFIED 03/15/2019 STEPHY ORNELAS MD Ot G89.18 OTHER ACUTE POSTPROCEDURAL PAIN 03/15/2019 STEPHY ORNELAS MD Ot I10 ESSENTIAL (PRIMARY) HYPERTENSION 03/15/2019 STEPHY ORNELAS MD Ot K21.9 GASTRO-ESOPHAGEAL REFLUX DISEASE WITHOUT 03/15/2019 STEPHY ORNELAS MD Ot R10.32 LEFT LOWER QUADRANT PAIN 03/15/2019 STEPHY ORNELAS MD Ot R30.0 DYSURIA 03/15/2019 STEPHY ORNELAS MD Ot R31.0 GROSS HEMATURIA 03/15/2019 STEPHY ORNELAS MD, Ot Z85.528 PERSONAL HISTORY OF OTHER MALIGNANT NEOP 03/15/2019 STEPHY ORNELAS MD Ot Z87.19 PERSONAL HISTORY OF OTHER DISEASES OF TH 03/15/2019 STEPHY ORNELAS MD Ot Z88.0 ALLERGY STATUS TO PENICILLIN 03/15/2019 STEPHY ORNELAS MD Ot Z90.5 ACQUIRED ABSENCE OF KIDNEY Procedures Code [place] [address] CULTURE MRSA 06/03/2014 Results Test Result Range TSH - 05/01/18 08:04 TSH 1.12 mIU/L 0.40-4.50 Influenza virus A and B antigen detection - 01/22/19 20:01 FLU RESULT NEGATIVE FOR INFLUENZA A AND B ANTIGENS BY IA NRG Encounters ACCT No. Visit Date/Time Discharge Status Pt. Type Provider Facility Loc./Unit Complaint [id number] 04/15/2019 15:00:00 04/15/2019 23:59:59 CLS Outpatient ROSALINA HEEL STIFFENER, [facility] [place] [facility] [id number] 05/01/2018 08:00:00 Document Registration [id number] 01/22/2019 19:28:00 01/22/2019 21:28:00 DIS Emergency DEVON LEIGH DO Via [facility] ER VOMITING,COUGH,HEADACHE,DIZZY [id number] 09/05/2018 20:54:00 09/06/2018 06:47:00 DIS Outpatient MONICA ROMANO [facility] SLEEP OBSTRUCTIVE SLEEP APNEA [id number] 07/10/2018 07:40:00 07/10/2018 23:59:59 CLS Outpatient STEPHY ORNELAS MD [facility] ER BLOOD IN URINE [id number] 05/16/2018 08:41:00 05/16/2018 23:59:59 CLS Outpatient JUAN PABLO VALENZUELA MD Via [facility] RAD LT RENAL MASS [id number] 05/14/2018 10:46:00 05/14/2018 23:59:59 CLS Outpatient JUAN PABLO VALENZUELA MD Via [facility] CARD LT RENAL MASS [id number] 04/11/2018 12:41:00 04/11/2018 23:59:59 CLS Outpatient MONICA ROMANO [facility] RAD STERNUM PAIN, EPIGASTRIS MASS [id number] 03/21/2018 06:49:00 03/21/2018 23:59:59 CLS Outpatient MONICA ROMANO [facility] RAD EPIGASTRIC MASS [id number] 08/27/2017 08:55:00 08/27/2017 09:00:00 DIS Emergency STEPHY ORNELAS MD [facility] ER SUTURE REMOVAL [id number] 08/17/2017 17:11:00 08/17/2017 19:40:00 DIS Emergency ERICA ZAMBRANO Via [facility] ER R HAND LAC [id number] 04/23/2017 12:17:00 04/23/2017 23:59:59 CLS Outpatient DIANA GARCIA, ROMIE De Paz [facility] RAD M54.5 M54.15 M79.1 [id number] 05/26/2019 16:16:00 ACT Emergency DEVON LEIGH DO Via [facility] ER LOWER BACK PAIN [id number] 06/23/2014 14:19:00 06/23/2014 23:59:59 CLS Outpatient LENA ASHTON APRN [id number] 06/03/2014 13:23:00 06/03/2014 23:59:59 CLS Outpatient LOBO CASAREZ APRN
--- NOTE | 2019-05-26 17:02 | NUR ---
pt to w/r from triage.
[2019-05-26] MEDS ORDERED: EPIN0.3P2 IJ (17:18)
--- NOTE | 2019-05-26 17:46 | ED Back Pain ---
General Chief Complaint: Back Problems Stated Complaint: LOWER BACK PAIN Nursing Triage Note: back pain " my kidneys" denies recent injury , pushing ,pulling, lifting etc. Nursing Sepsis Screen: No Definite Risk History of Present Illness Date Seen by Provider: May 26, 2019 Time Seen by Provider: 17:30 Initial Comments 43-year-old male presents for low back pain, radiating into bilateral anterior thighs. He had previous back surgery done in October [address] Peterson. He denies a specific injury, he was mowing his grass yesterday prior to the symptoms beginning. Location: Lumbar Spine, Paraspinous Muscles Timing/Duration: 1-2 Days Severity: Moderate Radiation: Upper Legs Method of Injury: Unknown Associated Symptoms: muscle spasms, lower back pain; No loss of bladder control, No loss of bowel control Allergies and Home Medications Allergies Coded Allergies: Penicillins (Verified Allergy, Unknown, 02/25/19) "NEVER TRIED IT--DAD IS ALLERGIC" Uncoded Allergies: BEES (Allergy, Unknown, 01/22/19) Home Medications Atenolol 25 Mg Tablet, 25 MG PO DAILY, (Reported) Pantoprazole Sodium 40 Mg Tablet.dr, 40 MG PO DAILY, (Reported) Prednisone 20 Mg Tab, 40 MG PO DAILY Prescribed by: CARMELLA MORALES on 05/26/191833 Tramadol HCl 50 Mg Tablet, 50 MG PO Q6H PRN for PAIN Prescribed by: CARMELLA MORALES on 05/26/191833 Patient Home Medication List Home Medication List Reviewed: Yes Review of Systems Constitutional: no symptoms reported, see HPI Musculoskeletal: see HPI, back pain All Other Systems Reviewed Negative Unless Noted: Yes Past Ccfxght-Fjnblf-Kqpxpv Hx Past Med/Social Hx: Reviewed Nursing Past Med/Soc Hx Patient Social History Alcohol Use: Occasionally Uses Recreational Drug Use: No Smoking Status: Current Everyday Smoker Type Used: Cigarettes Recent Foreign Travel: No Contact w/Someone Who Travel: No Recent Infectious Disease Expo: No Recent Hopitalizations: Yes Physical Abuse: No Sexual Abuse: No Immunizations Up To Date Tetanus Booster (TDap): Unknown Seasonal Allergies Seasonal Allergies: No Past Medical History Surgeries: Yes (CANCER REMOVED FROM LEFT KIDNEY) Nephrectomy Respiratory: Yes Sleep Apnea Cardiac: Yes High Cholesterol, Hypertension Neurological: No Sexually Transmitted Disease: No Genitourinary: Yes (KIDNEY CANCER) Gastrointestinal: Yes Gastroesophageal Reflux Musculoskeletal: No Endocrine: No HEENT: No Cancer: Yes Kidney Did You Recieve Any Treatments: Yes What Type of Treatment Did You: Surgical Intervention Psychosocial: No Integumentary: No Blood Disorders: No Family Medical History No Pertinent Family Hx Physical Exam Vital Signs Vital Signs - First Documented 05/26/19 16:57 Temp 97.5 Pulse 52 Resp 16 B/P (MAP) 139/83 (101) Pulse Ox 96 O2 Delivery Room Air Capillary Refill : Less Than 3 Seconds Height, Weight, BMI Height: 5'10.00" Weight: 220lbs. oz. 99.268482nl; 21.09 BMI Method:Stated General Appearance: No Apparent Distress, WD/WN Neck: Full Range of Motion, Normal Inspection, Non Tender, Supple Cardiovascular: Regular Rate, Rhythm, No Edema, No Murmur, Normal Peripheral Pulses Respiratory: Chest Non Tender, Lungs Clear Gastrointestinal: Normal Bowel Sounds, Non Tender, Soft Back: Normal Inspection, No CVA Tenderness, Muscle Spasm, Vertebral Tenderness, Other (patient able to ambulate with a steady gait, he can raise on to toes and heels. Power is V/V L4-S1. Neg SLR. ) Neurologic/Psychiatric: Alert, Oriented x3, No Motor/Sensory Deficits, Normal Mood/Affect Procedures/Interventions Suture Size: 4-0 Progress/Results/Core Measures Results/Orders Lab Results Laboratory Tests Test 05/26/19 17:22 Range/Units Urine Color YELLOW Urine Clarity CLEAR Urine pH 6 5-9 Urine Specific [place] 1.015 L 1.016-1.022 Urine Protein NEGATIVE NEGATIVE Urine Glucose (UA) NEGATIVE NEGATIVE Urine Ketones NEGATIVE NEGATIVE Urine Nitrite NEGATIVE NEGATIVE Urine Bilirubin NEGATIVE NEGATIVE Urine Urobilinogen NORMAL NORMAL MG/DL Urine Leukocyte Esterase 1+ H NEGATIVE Urine RBC (Auto) NEGATIVE NEGATIVE Urine RBC NONE /HPF Urine WBC NONE /HPF Urine Squamous Epithelial Cells NONE /HPF Urine Crystals NONE /LPF Urine Bacteria NEGATIVE /HPF Urine Casts NONE /LPF Urine Mucus NEGATIVE /LPF Urine Culture Indicated NO My Orders Orders - CARMELLA MORALES Ua Culture If Indicated (05/26/19 17:46) Ibuprofen Tablet (Motrin Tablet) (05/26/19 17:58) Orphenadrine Injection (Norflex Injectio (05/26/19 17:58) Vital Signs/I&O 05/26/19 05/26/19 16:57 18:43 Temp 97.5 Pulse 52 90 Resp 16 16 B/P (MAP) 139/83 (101) 142/78 (99) Pulse Ox 96 99 O2 Delivery Room Air Blood Pressure Mean: 101 Departure Impression Primary Impression: Lumbosacral strain Qualified Codes: S39.012A - Strain of muscle, fascia and tendon of lower back, initial encounter Disposition: 01 HOME, SELF-CARE Condition: Improved Departure-Patient Inst. Decision time for Depature: 18:30 Referrals: [facility]/YEFRI (PCP) Primary Care Physician MONICA ROMANO (Family) Primary Care Physician Patient Instructions: Lumbar Muscle Strain (DC) Add. Discharge Instructions: Alternate between heat and ice to your low back as tolerated. Increase walking. Take Prednisone medications as directed. Alternate between ibuprofen 600 mg and Tylenol 650 mg every 4 hours for pain. If Tylenol/Ibuprofen are not controling your pain, use the Tramadol prescription as ordered. Call Dr. Peterson for follow-up if symptoms are not improving or worsen. Return to emergency Department if pain worsens, retention or incontinence of urine or bowel, new concerns or problems. All discharge instructions reviewed with patient and/or family. Voiced understanding. Scripts Tramadol HCl (Tramadol HCl) 50 Mg Tablet 50 MG PO Q6H PRN for PAIN for 3 Days, TAB 0 Refills Prov: CARMELLA MORALES 05/26/19 Prednisone (Prednisone) 20 Mg Tab 40 MG PO DAILY, #6 TAB 0 Refills Prov: CARMELLA MORALES 05/26/19 Copy Copies To 1: BHUIMKA PETERSON AMY ARNP May 26, 2019 17:46
[2019-05-26] MEDS ORDERED: IBUPROFEN 800 MG (MOTRIN) TAB PO STA (17:58)
[2019-05-26] MEDS ORDERED: ORPHENADRINE 60 MG/2 ML (NORFLEX) AMP IM STA (17:58)
[2019-05-26 18:07] LABS: BACTERIA,URINE NEGATIVE /HPF; BILIRUBIN,URINE NEGATIVE (NEGATIVE); CLARITY,URINE CLEAR; COLOR,URINE YELLOW; GLUCOSE, URINE (UA) NEGATIVE (NEGATIVE); KETONES,URINE NEGATIVE (NEGATIVE); LEUKOCYTE ESTERASE ,URINE 1+ (NEGATIVE); NITRITE,URINE NEGATIVE (NEGATIVE); PH,URINE 6 (5-9); PROTEIN,URINE NEGATIVE (NEGATIVE); UROBILINOGEN,URINE NORMAL (NORMAL)
[2019-05-26] MEDS ORDERED: TRAM50TA2 PO (18:34)
[2019-05-26] MEDS ORDERED: PRD20T PO (18:34)
[2019-05-26 18:43] VITALS: BP 142/78
== END 2019-05-26 18:43 | disposition home or self-care (01) ==
LOC: EDUNIT# 16:15 → ER 16:16
DX: S39.012A Strain of muscle, fascia and tendon of lower back, initial encounter (principal); I10 Essential (primary) hypertension; E78.00 Pure hypercholesterolemia, unspecified; K21.9 Gastro-esophageal reflux disease without esophagitis; F17.210 Nicotine dependence, cigarettes, uncomplicated; Z88.0 Allergy status to penicillin; Z85.528 Personal history of other malignant neoplasm of kidney; Z90.5 Acquired absence of kidney; X50.1XXA Overexertion from prolonged static or awkward postures, initial encounter
CPT/HCPCS: 81000; 96372

== ENCOUNTER → 2020-02-09 | Outpatient (CLI) | payer MEDICARE, MEDICAID ==
[~2020-02-09] MED LIST changes: +ACHD5005 PO; +CATHETER FLUSH 10 ML SYR IV PRN; -D-ME118S7 PO; +EPIN0.3P2 IJ; +HOLD METFORMIN - RECEIVED CONTRAST 20 ML VIAL IV SCH; -HYDR-3062 PO; +IOHEXOL 350 MG/ML 100 ML (OMNIPAQUE 350) VIAL IV ONE; +NS 100 ML (IVPB) BAG IV ONE; +PRD20T PO; +PROM118S4 PO; +TRM50T PO
--- NOTE | 2020-02-09 11:55 | Diagnostic Imaging Report ---
Exam: CT abdomen and pelvis with intravenous contrast. Technique: Multiple contiguous axial CT images of the abdomen and pelvis were obtained following the intravenous administration of contrast. Coronal and sagittal reformats were obtained and provided. All CT scans use one or more of the following dose optimizing techniques: automated exposure control, MA and/or KvP adjustment based on a patient size and exam type, or iterative reconstruction. Date: February 09, 2020. Indication: 44-year-old male, epigastric mass. History of renal malignancy status post partial left nephrectomy. Comparison: CT abdomen pelvis July 10, 2018. Findings: The visualized portions of the lung bases are clear. The heart is not enlarged. There is no identified pericardial effusion. There is a very small hiatal hernia. The liver is normal in size and contour. There is a 3 mm low-attenuation lesion in the left lobe of the liver on axial image 12 too small to characterize. This is unchanged since at least July 10, 2018. There is no additionally identified liver lesion. The main, right, and left portal veins are patent. The gallbladder is unremarkable. There is no intrahepatic or extrahepatic bile duct dilation. The main pancreatic duct is not abnormally dilated. Unremarkable appearance of the pancreatic parenchyma. The spleen is normal in size. The adrenal glands are unremarkable. There is a contour abnormality of the anterior left kidney on axial image 32 consistent with site of prior procedure related change. There is no identified residual left renal mass. There is no otherwise identified renal lesion. There is no hydronephrosis. There is no identified renal or ureteral stone. The urinary bladder is unremarkable in appearance. The intestinal tract is not distended. The appendix is unremarkable and well visualized. There is no free intraperitoneal air. There is no drainable fluid collection. There is no free pelvic fluid. There are atherosclerotic calcifications. There is no identified abnormally enlarged lymph node in the abdomen or pelvis meeting CT size criteria for adenopathy. There is a peripherally sclerotic predominantly centrally lucent lesion in the left intertrochanteric femur measuring 1.9 x 0.8 cm in size which narrows on zone of transition. This is unchanged since July 10, 2018. There is no identified bone lesion concerning for a renal malignancy metastasis. IMPRESSION: 1. Procedure related changes of the left kidney without evidence of residual or recurrent malignancy. 2. No evidence of metastatic disease within the abdomen or pelvis. 3. Stable bone lesion of left intertrochanteric femur since at least July 10, 2018 which is most likely benign in etiology. 4. Small hiatal hernia. Dictated by: Dictated on workstation # [id number]
== END ==
LOC: RAD 10:23
PROVIDERS: ATTEND Nurse Practitioner Community Health
DX: R19.06 Epigastric swelling, mass or lump (principal); M89.9 Disorder of bone, unspecified; K44.9 Diaphragmatic hernia without obstruction or gangrene
CPT/HCPCS: 71260; 74160

== ENCOUNTER 2020-06-11 00:28 | Emergency (ER) | payer MEDICARE, MEDICAID ==
[~2020-06-11] VITALS: Ht 175 cm; Wt 103.0 kg
[~2020-06-11 00:28] MED LIST changes: -CATHETER FLUSH 10 ML SYR IV PRN; -HOLD METFORMIN - RECEIVED CONTRAST 20 ML VIAL IV SCH; -IOHEXOL 350 MG/ML 100 ML (OMNIPAQUE 350) VIAL IV ONE; -NS 100 ML (IVPB) BAG IV ONE; -PROM118S4 PO; +PROM118S5 PO; -SENN-141 PO; +SENN-234 PO
[2020-06-11 00:47] VITALS: BP 148/93
[2020-06-11] MEDS ORDERED: SULF1TAB35 PO (00:56)
--- NOTE | 2020-06-11 00:56 | ED General ---
General Chief Complaint: General Problems/Pain Stated Complaint: SUNBURNED LEFT LEG,SWOLLEN Source of Information: Patient Exam Limitations: No Limitations History of Present Illness Date Seen by Provider: Jun 11, 2020 Time Seen by Provider: 00:45 Initial Comments This 44-year-old gentleman presents to the emergency room with rather severe sunburn on the anterior portion of his lower legs and distal thighs from continuing a few days ago. He has become increasingly concerned about his left lower leg where swelling is worse than right. He also has some breaks in the skin that are weeping yellow fluid. He has no pain or tenderness in the posterior lower legs. He denies fever. He used mustard on his legs which she has since cleaned off. Allergies and Home Medications Allergies Coded Allergies: Penicillins (Verified Allergy, Unknown, 02/25/19) "NEVER TRIED IT--DAD IS ALLERGIC" Uncoded Allergies: BEES (Allergy, Unknown, 01/22/19) Home Medications Atenolol 25 Mg Tablet, 25 MG PO DAILY, (Reported) Pantoprazole Sodium 40 Mg Tablet.dr, 40 MG PO DAILY, (Reported) Prednisone 20 Mg Tab, 40 MG PO DAILY Prescribed by: CARMELLA MORALES on 05/26/19 183 Sulfamethoxazole/Trimethoprim 1 Each Tablet, 1 EACH PO BID Prescribed by: STEPHY AMANDA on 06/11/20 0056 Tramadol HCl 50 Mg Tablet, 50 MG PO Q6H PRN for PAIN Prescribed by: CARMELLA MORALES on 05/26/19 1834 Patient Home Medication List Home Medication List Reviewed: Yes Review of Systems Review of Systems Constitutional: no symptoms reported EENTM: no symptoms reported Respiratory: no symptoms reported Cardiovascular: no symptoms reported Gastrointestinal: no symptoms reported Genitourinary: no symptoms reported Musculoskeletal: no symptoms reported Skin: see HPI Psychiatric/Neurological: No Symptoms Reported Past Vebowou-Fmveco-Crhbtu Hx Past Med/Social Hx: Reviewed Nursing Past Med/Soc Hx Patient Social History Type Used: Cigarettes Recent Foreign Travel: No Contact w/Someone Who Travel: No Recent Hopitalizations: Yes Immunizations Up To Date Tetanus Booster (TDap): Unknown Seasonal Allergies Seasonal Allergies: No Past Medical History Surgeries: Yes (CANCER REMOVED FROM LEFT KIDNEY) Nephrectomy Respiratory: Yes Sleep Apnea Cardiac: Yes High Cholesterol, Hypertension Neurological: No Sexually Transmitted Disease: No Genitourinary: Yes (KIDNEY CANCER) Gastrointestinal: Yes Gastroesophageal Reflux Musculoskeletal: No Endocrine: No HEENT: No Cancer: Yes Kidney Did You Recieve Any Treatments: Yes What Type of Treatment Did You: Surgical Intervention Psychosocial: No Integumentary: No Blood Disorders: No Family Medical History No Pertinent Family Hx Physical Exam Vital Signs Vital Signs - First Documented 06/11/20 00:47 Temp 36.7 Pulse 85 Resp 17 B/P (MAP) 148/93 (111) Pulse Ox 99 O2 Delivery Room Air Capillary Refill : Height, Weight, BMI Height: 5'10.00" Weight: 220lbs. oz. 99.887529rf; 21.09 BMI Method:Stated General Appearance: No Apparent Distress, WD/WN HEENT: Normal ENT Inspection Respiratory: Lungs Clear, Normal Breath Sounds Extremity: Other (marked erythema of the anterior lower legs bilaterally. Swelling around the ankles, left greater than right. Some ruptured blisters present weeping yellow fluid from the distal portion of the left lower leg. No pain, tenderness, or swelling of the posterior portions of the legs.) Neurologic/Psychiatric: Alert, Oriented x3, No Motor/Sensory Deficits, Normal Mood/Affect, special needs babysitter II-XII Norm as Tested Skin: Erythema (see above) Procedures/Interventions Suture Size: 4-0 Progress/Results/Core Measures Suspected Sepsis SIRS Temperature: Pulse: Respiratory Rate: Blood Pressure / Mean: Results/Orders Vital Signs/I&O Capillary Refill : Progress Note : Progress Note There is concern about possible infection of the left lower leg as it has become progressively more swollen than the right. He also reports his legs were in river water. Because of this concern he was started on Bactrim. Departure Impression Primary Impression: Sunburn Additional Impression: Cellulitis Qualified Codes: L03.116 - Cellulitis of left lower limb Disposition: HOME, SELF-CARE Condition: Improved Departure-Patient Inst. Decision time for Depature: 00:54 Referrals: [facility]/YEFRI (PCP) Primary Care Physician MONICA ROMANO (Family) Primary Care Physician Patient Instructions: Cellulitis and Erysipelas (Skin Infections) Add. Discharge Instructions: You have a severe sunburn of your lower legs. This may be complicated with danielle lulitis due to the breaks in your skin. Complete antibiotics as prescribed. Elevate your legs to the level of your heart is much as possible to improve swelling. For pain you may take a combination of ibuprofen and Tylenol (acetaminophen). You may take up to 600 mg of ibuprofen every 6 hours as needed and up to 1000 mg of Tylenol every 6 hours as needed. You may use topical moisturizers or sunburn preparations such as aloe vera gels. Return to care if you have worsening symptoms, especially if you develop fevers over 100. All discharge instructions reviewed with patient and/or family. Voiced understanding. Scripts Sulfamethoxazole/Trimethoprim (Bactrim Ds Tablet) 1 Each Tablet 1 EACH PO BID, #20 TAB Prov: STEPHY ORNELAS MD 06/11/20 STEPHY ORNELAS MD Jun 11, 2020 00:56
[2020-06-11] MEDS ORDERED: TRIM/SULFAMETH 160/800 (SEPTRA DS) TAB PO ONE (01:00)
== END 2020-06-11 01:06 | disposition home or self-care (01) ==
LOC: EDUNIT# 00:28 → ER 00:32
DX: L55.9 Sunburn, unspecified (principal); L03.116 Cellulitis of left lower limb; I10 Essential (primary) hypertension; K21.9 Gastro-esophageal reflux disease without esophagitis; Z88.0 Allergy status to penicillin; Z85.528 Personal history of other malignant neoplasm of kidney
CPT/HCPCS: 99283

== ENCOUNTER 2021-11-09 15:22 | Emergency (ER) | payer MEDICARE, MEDICAID ==
[~2021-11-09] VITALS: Ht 175 cm; Wt 107.0 kg
[~2021-11-09 15:22] MED LIST changes: +DOXY-311 PO; -DOXY100C42 PO; -PANT40TA3 PO; +PANT40TA52 PO; +SULF1TAB38 PO
[2021-11-09] MEDS ORDERED: IBUPROFEN 800 MG (MOTRIN) TAB PO STA (16:01)
--- NOTE | 2021-11-09 16:12 | ED Lower Extremity ---
General Chief Complaint: Lower Extremity Stated Complaint: R MARTINEZ INJ Nursing Triage Note: PT AMBULATORY TO ER. REPORTS AROUND 1100 TODAY WAS WORKING ON A FENCE. PT REPORTS ACCIDENTALLY HIT HIS R ANTERIOR LOWER LEG WITH A SLEDGE HAMMER. SWELLING AND BRUISING NOTED TO AREA. (CARMELLA MORALES) History of Present Illness Date Seen by Provider: Nov 09, 2021 Time Seen by Provider: 15:40 Initial Comments 46-year-old male reports using a sledgehammer earlier today, while working on fence. He accidentally hit his righ ant tibia with sledge hammer. No bleeding or breaks in skin. Denies other injuries, able to walk and bear weight on right leg, but painful. Onset: this morning Pain/Injury Location: right leg (lower anterior tibia) Method of Injury: direct blow (CARMELLA MORALES) Allergies and Home Medications Allergies Coded Allergies: Penicillins (Verified Allergy, Unknown, 02/25/19) "NEVER TRIED IT--DAD IS ALLERGIC" Uncoded Allergies: BEES (Allergy, Unknown, 01/22/19) Patient Home Medication List Home Medication List Reviewed: Yes (CARMELLA MORALES) Atenolol (Atenolol) 25 Mg Tablet, 25 MG PO DAILY, (Reported) Entered as Reported by: TREY YORK on 07/10/18 1055 Atorvastatin Calcium (Atorvastatin Calcium) 40 Mg Tablet, 40 MG PO, (Reported) Entered as Reported by: TREY YORK on 07/10/18 1055 Epinephrine (Epipen) 0.3 Mg/0.3 Ml Auto.injct, 0.3 MG IJ, (Reported) Entered as Reported by: SHAINA LOAIZA on 05/26/19 1718 Pantoprazole Sodium (Pantoprazole Sodium) 40 Mg Tablet.dr, 40 MG PO DAILY, (Reported) Entered as Reported by: TREY YORK on 07/10/18 1055 Prednisone (Prednisone) 20 Mg Tab, 40 MG PO DAILY Prescribed by: CARMELLA MORALES on 05/26/19 1834 Sulfamethoxazole/Trimethoprim (Bactrim Ds Tablet) 1 Each Tablet, 1 EACH PO BID Prescribed by: STEPHY AMANDA on 06/11/20 0056 Tramadol HCl (Tramadol HCl) 50 Mg Tablet, 50 MG PO Q6H PRN for PAIN Prescribed by: CARMELLA MORALES on 05/26/19 1834 Review of Systems Constitutional: no symptoms reported, see HPI Musculoskeletal: see HPI, muscle pain (right lower leg) (CARMELLA MORALES) All Other Systems Reviewed Negative Unless Noted: Yes (CARMELLA MORALES) Past Eitfkbh-Mhekhn-Zvsabc Hx Patient Social History Tobacco Use?: Yes Tobacco type used: Cigarettes Smoking Status: Current Everyday Smoker Use of E-Cig and/or Vaping dev: No Substance use?: No Alcohol Use?: Yes Pt feels they are or have been: No (CARMELLA MORALES) Immunizations Up To Date Tetanus Booster (TDap): Unknown (CARMELLA MORALES) Seasonal Allergies Seasonal Allergies: No (CARMELLA MORALES) Past Medical History Surgeries: Yes (CANCER REMOVED FROM LEFT KIDNEY) Nephrectomy Respiratory: Yes Sleep Apnea Cardiac: Yes High Cholesterol, Hypertension Neurological: No Sexually Transmitted Disease: No Genitourinary: Yes (KIDNEY CANCER) Gastrointestinal: Yes Gastroesophageal Reflux Musculoskeletal: No Endocrine: No HEENT: No Cancer: Yes Kidney Did You Recieve Any Treatments: Yes What Type of Treatment Did You: Surgical Intervention Psychosocial: No Integumentary: No Blood Disorders: No (CARMELLA MORALES) Family Medical History Reviewed Nursing Family Hx (CARMELLA MORALES) No Pertinent Family Hx (CARMELLA MORALES) Physical Exam Vital Signs Vital Signs - First Documented 11/09/21 15:26 Temp 36.9 Pulse 90 Resp 18 B/P (MAP) 184/108 (133) Pulse Ox 98 O2 Delivery Room Air (STEPHY ORNELAS MD) Vital Signs Capillary Refill : (CARMELLA MORALES) Height, Weight, BMI Height: 5'10.00" Weight: 220lbs. oz. 99.270484cl; 34.00 BMI Method:Stated General Appearance: WD/WN, no apparent distress Cardiovascular: normal peripheral pulses, regular rate, rhythm Respiratory: chest non-tender, lungs clear, normal breath sounds Legs: left leg non-tender, left leg normal inspection, left leg normal range of motion, left leg no evidence of injury; right leg bone tenderness (Anterior lower tibia), right leg ecchymosis, right leg pain, right leg soft tissue tenderness, right leg swelling Knees: bilateral knee non-tender, bilateral knee normal inspection, bilateral knee normal range of motion, bilateral knee no evidence of injury Ankles: bilateral ankle non-tender, bilateral ankle normal inspection, bilateral ankle normal range of motion, bilateral ankle no evidence of injury Neurologic/Tendon: normal sensation, normal motor functions, normal tendon functions Neurologic/Psychiatric: no motor/sensory deficits, alert, normal mood/affect, oriented x 3 Skin: normal color, warm/dry, ecchymosis (ant right lower tibia) (CARMELLA MORALES) Procedures/Interventions Suture Size: 4-0 (CARMELLA MORALES) Progress/Results/Core Measures Results/Orders Vital Signs/I&O 11/09/21 11/09/21 11/09/21 15:26 16:09 16:56 Temp 36.9 Pulse 90 76 76 Resp 18 18 18 B/P (MAP) 184/108 (133) 168/91 167/94 Pulse Ox 98 98 98 O2 Delivery Room Air Room Air (STEPHY ORNELAS MD) Blood Pressure Mean: 133 Diagnostic Imaging Diagonstic Imaging: Xray Plain Films/CT/US/NM/MRI: other (Rt Tib/Fib) Comments NAME: BARTOLO GRACE Lali [facility] REC#: [id number] PT STATUS: REG ER : 1975 PHYSICIAN: CARMELLA MORALES ADMIT DATE: 11/09/21/ER Draft Date of Exam:11/09/21 TIBIA/FIBULA, RIGHT, 2 VIEWS INDICATION: Injury, pain EXAMINATION: Right tibia-fibula 11/08/2021 FINDINGS: 4 views of the tibia and fibula There is no definite acute fracture or dislocation with the joint spaces preserved. On the frontal view of the distal extremity there is mild lucency along the distal one-third of the fibula which is likely caused by overlying artifact. If there is focal point tenderness repeat frontal image with the overlying artifact removed could help exclude underlying nondisplaced fracture. IMPRESSION: 1. Nonspecific but likely artifactual lucency along the distal fibula; see above discussion and recommendations. Dictated on workstation # [id number] Dict: 11/09/21 1630 Trans: 11/09/21 1646 [facility] [id number] Interpreted by: BLAYNE NIELSON MD Electronically signed by: Reviewed: Reviewed by Me (CARMELLA MORALES) Departure Impression Primary Impression: Contusion of right tibia Disposition: 01 HOME, SELF-CARE Condition: Improved Departure-Patient Inst. Decision time for Depature: 16:50 (CARMELLA MORALES) Referrals: [facility] (PCP) Primary Care Physician MONICA ROMANO (Family) Primary Care Physician Patient Instructions: Contusion (DC) Add. Discharge Instructions: Max wrap to right lower extremity. Ice to bruised area 20 minutes every 2 hours. You may alternate between Tylenol 650 mg and ibuprofen 600 mg every 4 hours for pain. Activity as tolerated. Follow-up with your primary care provider if symptoms are not improving or worsen. There could be an occult fracture, that won't be visible on x-ray for 5-7 days. If your pain is not improving, your primary care provider can obtain repeat x- rays. Return to the emergency department for new, urgent healthcare needs. All discharge instructions reviewed with patient and/or family. Voiced understanding. ATTENDING PHYSICIAN NOTE: I was physically present as attending physician in the emergency department during the care of this patient, but I was not directly involved in the decision making or delivery of care for this patient. (STEPHY ORNELAS MD) CARMELLA MORALES Nov 09, 2021 16:11 STEPHY ORNELAS MD Nov 09, 2021 21:14
--- NOTE | 2021-11-09 16:47 | Diagnostic Imaging Report ---
INDICATION: Injury, pain EXAMINATION: Right tibia-fibula 11/08/2021 FINDINGS: 4 views of the tibia and fibula There is no definite acute fracture or dislocation with the joint spaces preserved. On the frontal view of the distal extremity there is mild lucency along the distal one-third of the fibula which is likely caused by overlying artifact. If there is focal point tenderness repeat frontal image with the overlying artifact removed could help exclude underlying nondisplaced fracture. IMPRESSION: 1. Nonspecific but likely artifactual lucency along the distal fibula; see above discussion and recommendations. Dictated by: Dictated on workstation # [id number]
[2021-11-09 16:56] VITALS: BP 167/94
== END 2021-11-09 16:56 | disposition home or self-care (01) ==
LOC: EDUNIT# 15:22 → ER 15:24
DX: S80.11XA Contusion of right lower leg, initial encounter (principal); G47.30 Sleep apnea, unspecified; I10 Essential (primary) hypertension; K21.9 Gastro-esophageal reflux disease without esophagitis; E78.00 Pure hypercholesterolemia, unspecified; F17.210 Nicotine dependence, cigarettes, uncomplicated; Z79.899 Other long term (current) drug therapy; W22.8XXA Striking against or struck by other objects, initial encounter
CPT/HCPCS: 73590

== ENCOUNTER → 2023-02-15 | Outpatient (CLI) | payer MEDICARE, MEDICAID ==
[~2023-02-15] MED LIST changes: -DOXY-311 PO; +DOXY-444 PO
--- NOTE | 2023-02-15 11:04 | Diagnostic Imaging Report ---
PROCEDURE: MRI lumbar spine. TECHNIQUE: Multiplanar, multisequence MRI of the lumbar spine was performed without contrast. INDICATION: Increased lower back pain. COMPARISON: None FINDINGS: For the purposes of this exam, last well-formed disc space is noted at the L5-S1 level. Static alignment is maintained. There is no significant anteroretrolisthesis. There is no evidence of jumped facets. Vertebral body heights are maintained. There is no acute fracture. Marrow signal is normal throughout. There is mild multilevel intervertebral disc height loss with mild multiple level anterior and posterior disc bulging. Visualized portions of distal cord are unremarkable. Conus terminates at approximately the T12-L1 level. No abnormal intrathecal filling defects are seen. Pre and paravertebral soft tissue structures are unremarkable. Axial images initiated the following: T12-L1 and L1-L2: There is no large disc bulge or focal protrusion. There is no significant spinal canal or neuroforaminal stenosis. L2-L3: There is central posterior disc protrusion. As a result, there is moderate stenosis of the spinal canal. Neural foramen are unremarkable. L3-L4: There is central posterior disc protrusion superimposed on broad-based posterior disc bulge. As result, there is mild narrowing of the spinal canal and bilateral neural foramen. L4-L5: There is right paracentric posterior disc protrusion superimposed on broad-based posterior disc bulge. As a result, there is mild narrowing of the spinal canal and bilateral neural foramen. L5-S1: There is no large disc bulge or focal protrusion. There is no significant spinal canal or neuroforaminal stenosis IMPRESSION: 1. Degenerative changes of the lumbar spine greatest at the L2-L3 through L4-L5 levels. 2. No acute fracture or dislocation. Dictated by: Dictated on workstation # [id number]
== END ==
LOC: RAD 09:30
PROVIDERS: ATTEND Nurse Practitioner Family
DX: M47.816 Spondylosis without myelopathy or radiculopathy, lumbar region (principal)
CPT/HCPCS: 72148

== ENCOUNTER 2023-03-21 05:37 | Outpatient (CLI) | payer MEDICARE, MEDICAID ==
[~2023-03-21] VITALS: Ht 180.3 cm; Wt 109.0 kg
[2023-03-22] MEDS ORDERED: CETI10TA49 PO (13:56)
[2023-03-22] MEDS ORDERED: PANT40TA52 PO (13:56)
[2023-03-22] MEDS ORDERED: FAMO40TA6 PO (13:56)
[2023-03-22] MEDS ORDERED: ATEN50TA PO (13:56)
[2023-03-22] MEDS ORDERED: ATOR40TA PO (13:56)
[2023-03-22] MEDS ORDERED: VNL75T PO (13:56)
[2023-03-22] MEDS ORDERED: OLME20TA24 PO (13:56)
== END 2023-03-22 14:01 | disposition home or self-care (01) ==
LOC: PREOP 05:37
PROVIDERS: ATTEND Surgery
DX: Z01.818 Encounter for other preprocedural examination (principal)

== ENCOUNTER 2023-04-03 07:33 | Day surgery (SDC) | payer MEDICARE, MEDICAID ==
[~2023-04-03] VITALS: Ht 180.3 cm; Wt 109.0 kg
[~2023-04-03 07:33] MED LIST changes: +ATEN50TA PO; +ATOR40TA PO; +CETI10TA49 PO; +FAMO40TA6 PO; +OLME20TA24 PO; +VNL75T PO
[2023-04-03] MEDS ORDERED: LACTATED RINGERS 1,000 ML IV STA (07:56)
[2023-04-03] MEDS ORDERED: HURRICAINE EXT TUBE (BENZOCAINE) XX PRN (08:00)
[2023-04-03 08:05] VITALS: BP 133/79
[2023-04-03] MEDS ORDERED: LACTATED RINGERS 1,000 ML IV ONE (08:08)
[2023-04-03] MEDS ORDERED: PROPOFOL INJECTION 50 ML IV ONE (08:36)
[2023-04-03] MEDS ORDERED: SUCCINYLCHOLINE INJ 20 MG/1 ML 10 ML VIAL ONE (09:12)
[2023-04-03 09:15] VITALS: BP 119/56
--- NOTE | 2023-04-03 09:18 | Progress Note-Post Operative ---
Post-Operative Progess Note Surgeon (s)/Corner Brace Block Machine Operator (s) Surgeon EDGAR MONTERO DO Corner Brace Block Machine Operator: na Pre-Operative Diagnosis screening colonoscopy, GERD Post-Operative Diagnosis hiatal hernia, reflux esophagitis, colon polyp Procedure & Operative Findings Date of Procedure 04/03/23 Procedure Performed/Findings EGD with biopsies, Colonoscopy Anesthesia Type per OCCUPATIONAL THERAPY ASST Estimated Blood Loss Estimated blood loss (mL): none Specimens/Packing Specimens Removed antrum, GE EDGAR MONTERO DO April 03, 2023 09:18
[2023-04-03] MEDS ORDERED: SUCR1TAB36 PO (09:19)
[2023-04-03 09:20] VITALS: BP 112/53
--- NOTE | 2023-04-03 09:20 | Discharge Inst-Simple/Standard ---
Discharge Inst-Standard Discharge Medications New, Converted or Re-Newed RX: Transmitted to Pharmacy Patient Instructions/Follow Up Plan of Care/Instructions/FU: two weeks abdulaziz and will be scheduled for colonoscopy to remove polyp Activity as Tolerated: Yes Discharge Diet: Regular Diet EDGAR MONTERO DO April 03, 2023 09:20
[2023-04-03 10:18] VITALS: BP 112/53
--- NOTE | 2023-04-03 12:02 | Anesthesia-General Post-Op ---
MAC Patient Condition Mental Status/LOC: Same as Preop Cardiovascular: Satisfactory Nausea/Vomiting: Absent Respiratory: Satisfactory Pain: Controlled Complications: Absent Post Op Complications Complications None Follow Up Care/Instructions Patient Instructions None needed. Anesthesiology Discharge Order Discharge Order Patient is doing well, no complaints, stable vital signs, no apparent adverse anesthesia problems. No complications reported per nursing. ALVA FIGUEREDO CRNA April 03, 2023 12:02
--- NOTE | 2023-04-03 16:58 | OPERATIVE REPORT ---
DATE OF SERVICE: 04/03/2023 PREOPERATIVE DIAGNOSES: Screening colonoscopy and gastroesophageal reflux disease. POSTOPERATIVE DIAGNOSES: Hiatal hernia, reflux esophagitis, colon polyps. PROCEDURES: EGD with biopsies, colonoscopy. SURGEON: Edgar Hartman DO ANESTHESIA: Per DRAIN CLEANER PLUMBER. ESTIMATED BLOOD LOSS: None. COMPLICATIONS: Hypoxia. INDICATIONS: The patient is a 47-year-old male with GERD, needing screening colonoscopy. He understands risks and benefits of procedure and wished to proceed. Consent was signed in chart. DESCRIPTION OF PROCEDURE: The patient was taken to endoscopy suite, placed in left lateral recumbent position. Timeout was performed. Scope was inserted in the mouth, down the esophagus, stomach, into the duodenum without difficulty. No polyps, masses or ulcerations within the duodenum. Scope was slowly retracted back into stomach where it was further insufflated. No polyps, masses or ulcerations. Biopsy of the antrum was obtained. Scope was retroflexed noting a hiatal hernia, moderate size. No other pathology noted. Scope was returned to its normal position, slowly withdrawn until the distal esophagus, had changes of reflux esophagitis. Biopsy was obtained. Scope was slowly retracted back until completely removed. Digital rectal exam performed. No palpable polyps, masses or ulcerations. Scope was inserted in the rectum and advanced all the way to the cecum. Prep was adequate. On entry, we noted a polyp at approximately 50 cm. During test, the patient started to become hypoxic. We desufflated the colon. Anesthesia was working on improving his oxygenation, which he continued to desaturate. Therefore the scope was completely retracted. The patient was repositioned and continued to work on his breathing. He did continue to improve. He had been given succinylcholine. We will continue to monitor the patient. He had a very minimal desaturation at this point. He was then continue to improve, but we decided to not proceed with scope at this time. We will repeat colonoscopy in the near future. He will follow up in 2 weeks to discuss pathology of the upper. We will start him on Carafate 1 gram 4 times a day. Continue other medications. Job ID: [id number] DocumentID: [id number] Dictated Date: 04/03/2023 09:18:12 Screen Cutter And Trimmer Date: 04/03/2023 16:56:00 Dictated By: EDGAR HARTMAN DO
== END 2023-04-03 09:48 | disposition home or self-care (01) ==
LOC: ENDO 07:33
PROVIDERS: ATTEND Surgery
DX: Z12.11 Encounter for screening for malignant neoplasm of colon (principal); K21.00 Gastro-esophageal reflux disease with esophagitis, without bleeding; K44.9 Diaphragmatic hernia without obstruction or gangrene; K29.50 Unspecified chronic gastritis without bleeding; B96.81 Helicobacter pylori [H. pylori] as the cause of diseases classified elsewhere; K63.5 Polyp of colon; G47.33 Obstructive sleep apnea (adult) (pediatric); F17.210 Nicotine dependence, cigarettes, uncomplicated; Z99.81 Dependence on supplemental oxygen
CPT/HCPCS: 43239; G0121

== ENCOUNTER 2023-05-23 05:37 | Outpatient (CLI) | payer MEDICARE, MEDICAID ==
[~2023-05-23] VITALS: Ht 180 cm; Wt 112.0 kg
[~2023-05-23 05:37] MED LIST changes: +SUCR1TAB36 PO
== END 2023-05-24 10:29 | disposition home or self-care (01) ==
LOC: PREOP 05:37
PROVIDERS: ATTEND Surgery
DX: Z01.818 Encounter for other preprocedural examination (principal)

== ENCOUNTER 2023-06-26 10:09 | Day surgery (SDC) | payer MEDICARE, MEDICAID ==
[~2023-06-26] VITALS: Ht 180 cm; Wt 112.0 kg
[2023-06-26] MEDS ORDERED: LACTATED RINGERS 1,000 ML IV STA (10:21)
[2023-06-26 10:48] VITALS: BP 127/74
[2023-06-26] MEDS ORDERED: MIDAZOLAM INJ 2 MG/2 ML VIAL ONE (11:02)
[2023-06-26] MEDS ORDERED: PROPOFOL INJECTION 50 ML IV ONE (11:02)
[2023-06-26] MEDS ORDERED: GLYCOPYRROLATE INJ 0.2 MG/ML 2 ML VIAL ONE (11:09)
[2023-06-26] MEDS ORDERED: SUCCINYLCHOLINE INJ 20 MG/1 ML 10 ML VIAL ONE (11:13)
[2023-06-26 11:30] VITALS: BP 112/75
[2023-06-26 11:35] VITALS: BP 138/99
--- NOTE | 2023-06-26 11:35 | Progress Note-Post Operative ---
Post-Operative Progess Note Surgeon (s)/Health Promoter (s) Surgeon EDGAR MONTERO DO Health Promoter: none Pre-Operative Diagnosis screening colonoscopy Post-Operative Diagnosis colon polyps Procedure & Operative Findings Date of Procedure 06/26/23 Procedure Performed/Findings Colonoscopy with hot bx and polypectomy x3 Snare polypectomy x2 Anesthesia Type per MUNICIPAL FIREFIGHTER Estimated Blood Loss Estimated blood loss (mL): none Specimens/Packing Specimens Removed transverse, descending, and sigmoid polyps EDGAR MONTERO DO Jun 26, 2023 11:35
--- NOTE | 2023-06-26 11:39 | Discharge Inst-Simple/Standard ---
Discharge Inst-Standard Patient Instructions/Follow Up Plan of Care/Instructions/FU: 2 weeks abdulaziz Activity as Tolerated: Yes Discharge Diet: Regular Diet EDGAR MONTERO DO Jun 26, 2023 11:39
[2023-06-26 11:40] VITALS: BP 124/70
[2023-06-26] MEDS ORDERED: ONDANSETRON 4 MG/2 ML (SDV) Z0FRAN ONE (11:56)
[2023-06-26 12:07] VITALS: BP 139/70
[2023-06-26 12:15] VITALS: BP 139/70
[2023-06-26] MEDS ORDERED: ONDANSETRON 4 MG/2 ML (SDV) Z0FRAN IVP ONE (12:30)
--- NOTE | 2023-06-26 12:34 | Anesthesia-General Post-Op ---
MAC Patient Condition Mental Status/LOC: Same as Preop Cardiovascular: Satisfactory Nausea/Vomiting: Absent Respiratory: Satisfactory Pain: Controlled Complications: Absent Post Op Complications Complications None Follow Up Care/Instructions Patient Instructions None needed. Anesthesiology Discharge Order Discharge Order Patient is doing well, no complaints, stable vital signs, no apparent adverse anesthesia problems. No complications reported per nursing. MARY MILLER CRNA Jun 26, 2023 12:34
--- NOTE | 2023-06-26 18:10 | OPERATIVE REPORT ---
DATE OF SERVICE: 06/26/2023 PREOPERATIVE DIAGNOSIS: Screening colonoscopy. POSTOPERATIVE DIAGNOSIS: Colon polyps. PROCEDURE: Colonoscopy with hot biopsy polypectomy x3 and snare polypectomy x2. SURGEON: Edgar Hartman DO ANESTHESIA: Per DEVELOPMENT SCIENTIST. ESTIMATED BLOOD LOSS: None. COMPLICATIONS: None. SPECIMENS: Colon polyps. INDICATIONS: The patient is a 47-year-old male, needing screening colonoscopy. He understands risks and benefits of procedure and wished to proceed. Consent was signed and in chart. DESCRIPTION OF PROCEDURE: The patient was taken to endoscopy suite, placed in left lateral recumbent position. Timeout was performed. Digital rectal exam was performed. No palpable polyps, masses or ulcerations. Scope was inserted in the rectum, advanced all the way to the cecum without difficulty. Prep was adequate with irrigation and suction. Scope was then slowly retracted back. No polyps, masses or ulcerations in the cecum and the ascending colon. Transverse colon had 2 polyps, which hot biopsy polypectomy was performed. Scope was then continuously retracted back to the descending colon where another polyp was present, which hot biopsy polypectomy was performed. Scope was then continuously retracted back into the sigmoid colon, which had 2 larger polyps, which snare polypectomies were performed. Scope was then continuously retracted back to the rectum where it was also retroflexed, noting no other pathology. Scope was returned to its normal position, slowly withdrawn until completely removed. The patient tolerated the procedure well without any complications, taken to recovery room in stable condition. RECOMMENDATIONS: The patient may repeat colonoscopy in 1-3 years depending on pathology. Any issues before that, he will be seen at that time. Job ID: [id number] DocumentID: [id number] Dictated Date: 06/26/2023 11:35:19 Method Consultant Date: 06/26/2023 18:09:00 Dictated By: EDGAR HARTMNA DO
== END 2023-06-26 12:15 | disposition home or self-care (01) ==
LOC: ENDO 10:09
PROVIDERS: ATTEND Surgery
DX: Z12.11 Encounter for screening for malignant neoplasm of colon (principal); D12.3 Benign neoplasm of transverse colon; D12.5 Benign neoplasm of sigmoid colon; D12.4 Benign neoplasm of descending colon; G47.33 Obstructive sleep apnea (adult) (pediatric); F17.210 Nicotine dependence, cigarettes, uncomplicated; Z99.81 Dependence on supplemental oxygen